=== PATIENT | female | born 1970 | race Caucasian/White ===

== ENCOUNTER 2019-09-22 06:00 | Outpatient (RCR) | payer MEDICARE, MEDICAID, SELFPAY | END 2019-10-22 23:59 | disposition home or self-care (01) | LOC: WPT 06:00 | PROVIDERS: Family Provider Nurse Practitioner Family; PCP Nurse Practitioner Family; Referring Provider Nurse Practitioner; Visit Provider Nurse Practitioner | DX: R42 Dizziness and giddiness (principal) | CPT/HCPCS: 97110; 97161; 97530 ==

== ENCOUNTER → 2019-10-01 16:08 | Outpatient (BNVA) | payer MEDICARE, MEDICAID, SELFPAY | PROVIDERS: Family Provider Nurse Practitioner Family; PCP Nurse Practitioner Family; Visit Provider Nurse Practitioner Family | DX: M25.562 Pain in left knee (principal); G89.29 Other chronic pain; G47.30 Sleep apnea, unspecified; E78.5 Hyperlipidemia, unspecified | CPT/HCPCS: 73560 ==

== ENCOUNTER → 2019-10-08 08:54 | Outpatient (BNVA) | payer MEDICARE, MEDICAID, SELFPAY | PROVIDERS: Family Provider Nurse Practitioner Family; Visit Provider Nurse Practitioner Psychiatric/Mental Health | DX: F31.63 Bipolar disorder, current episode mixed, severe, without psychotic features (principal); F41.1 Generalized anxiety disorder; F17.210 Nicotine dependence, cigarettes, uncomplicated | CPT/HCPCS: 99214; 99215 ==

== ENCOUNTER 2019-10-27 06:50 | Day surgery (SDC) | payer MEDICARE, MEDICAID, SELFPAY ==
[2019-10-26 07:48] VITALS: BMI 26.3
[2019-10-27 07:17] VITALS: BP 104/73; PULSE 88; RESP 18; TEMP 37.4; O2SAT 97
[2019-10-27] MEDS: sodium chloride 0.9% 1,000 ML 30 ML (07:20)
--- NOTE | 2019-10-27 07:29 | ANES.PREANE2 ---
Pre-Anesthetic Assessment Pre-Anesthetic Assessment: Height/Weight: Height 1.57 m Weight 65.317 kg Temp Pulse Resp BP Pulse Ox 99.3 F 88 18 104/73 97 10/27/19 07:17 10/27/19 07:17 10/27/19 07:17 10/27/19 07:17 10/27/19 07:17 Preop Diagnosis: History of colon polyps Proposed Procedure: Operation Date: 10/27/19 07:45 Proposed Procedures p Colonoscopy 06984 Z12.11(Not Applicable) - Aung Alston MD Was Beta Gay taken within 24 hours: N/A Last intake: Intake Last Liquid Date 10/26/19 Last Liquid Time 23:00 Last Solid Date 10/25/19 Last Solid Time 12:00 Last Intake: 23:00 Social: Social History: Tobacco Packs per day: 1 Pack years: 40+ Exam: Pre-Anes Outpt Exam: alert, oriented x 3, clear to auscultation bilaterally and regular rate & rhythm Airway: Submandibular: WNL Cervical ROM: WNL MP: 1 Dentition: False Pulmonary: Pulmonary: Asthma Comments: UD is PRN, breathing ok this am CV/HEM: CV/HEM: None reported : : None reported Hepatic: Hepatic: None reported GI: GI: GERD Metabolic: Metabolic: None reported Musc/skel: Musc/skel: Lower Back Pain and OA/DJD Neuropsych: Neuropsych: Anxiety, Bipolar, Depression and COSME Anesthetic Plan: ASA status: II Anesthesia: Anesthesia Evaluation and MAC Risk of > 500 ml blood loss (7ml/kg in children): No PFSH Anesthesia PFSH: Social History Smoking and tobacco status: current every day smoker cigarettes Packs smoked per day: 1 Years cigarettes smoked: 40 Quit status (tobacco): considering quitting Second hand smoke exposure: Yes Alcohol intake: never Lives independently: Yes Household members: significant other Marital status: Single Current occupational status: disabled History of recent travel: No Data Anesthesia Cardiac Studies: No Data to Display
--- NOTE | 2019-10-27 07:33 | P.HPUD_ITS ---
H&P update H&P Update: DATE OF SURGERY/PROCEDURE: 10/27/19 DATE H&P PERFORMED: H&P UPDATE INFORMATION: H&P completed within last 30 days and No changes to prior documentation PREOP DIAGNOSIS: History of colon polyps PLANNED PROCEDURE: Operation Date: 10/27/19 07:45 Proposed Procedures p Colonoscopy 84026 Z12.11(Not Applicable) - Aung Alston MD Full H&P Perinent History: Medical/Surgical History: Medical History (Updated 10/08/19 @ 11:21 by Minnie Quevedo, [facility]) Anemia (Acute) Bilateral hearing loss (Acute) Bipolar I disorder, most recent episode mixed, severe without psychotic features (Acute) Cigarette nicotine dependence (Acute) Generalized anxiety disorder (Acute) GERD (gastroesophageal reflux disease) (Chronic) Hyperlipidemia, mixed (Acute) Hypertension, benign (Acute) Intervertebral disc degeneration (Acute) Memory change (Acute) Menopause (Acute) Moderate persistent asthma (Acute) Sleep apnea (Acute) Sleep apnea in adult (Chronic) Patient had initial sleep study done, but titration portion of test has not been done Vitamin D deficiency (Acute) Family History: Family History (Updated 08/27/19 @ 09:23 by DAISY Harper) Mother Hypercholesteremia Hypertension Diabetes Heart disease Stroke Denies family history of Anesthesia complication Bleeding disorder Social History: Social History Smoking and tobacco status: current every day smoker cigarettes Packs smoked per day: 1 Years cigarettes smoked: 40 Quit status (tobacco): considering quitting Second hand smoke exposure: Yes Alcohol intake: never Lives independently: Yes Household members: significant other Marital status: Single Current occupational status: disabled History of recent travel: No
[2019-10-27 08:26] VITALS: BP 109/67; PULSE 89; RESP 16; TEMP 36.3; O2SAT 100
--- NOTE | 2019-10-27 08:34 | ANE.PACU2 ---
 Inpatient post-anesthesia follow up: Airway intact: Yes Vital signs: Temperature 99.3 F Pulse Rate 88 Respiratory Rate 18 Blood Pressure 104/73 Pulse Oximetry 97 Oxygen Delivery Me thod Room Air Oxygen Flow Rate Fraction of Inspir ed Oxygen Hydration adequate: Yes Nausea and vomiting: No Pain level: 1 Mental status: Baseline
[2019-10-27 08:45] VITALS: BP 117/81; PULSE 76; RESP 18; O2SAT 99
== END 2019-10-27 08:55 | disposition home or self-care (01) ==
PROVIDERS: Family Provider Nurse Practitioner Family; PCP Nurse Practitioner Family; Visit Provider Surgery
PROC: 0DJD8ZZ Inspection of Lower Intestinal Tract, Via Natural or Artificial Opening Endoscopic (ICD-10-PCS; CPT 45378; principal; 2019-10-27 07:45)
DX: Z12.11 Encounter for screening for malignant neoplasm of colon (principal); Z86.010 Personal history of colon polyps; D12.4 Benign neoplasm of descending colon; F17.210 Nicotine dependence, cigarettes, uncomplicated; F41.1 Generalized anxiety disorder; K21.9 Gastro-esophageal reflux disease without esophagitis; E78.5 Hyperlipidemia, unspecified; I10 Essential (primary) hypertension; G47.30 Sleep apnea, unspecified; Z82.49 Family history of ischemic heart disease and other diseases of the circulatory system; Z83.3 Family history of diabetes mellitus; Z82.3 Family history of stroke; J45.909 Unspecified asthma, uncomplicated; M19.90 Unspecified osteoarthritis, unspecified site
CPT/HCPCS: 12345; 45385; 88305; J2704; J7030

== ENCOUNTER → 2019-11-03 10:03 | Outpatient (BNVA) | payer MEDICARE, MEDICAID, SELFPAY | PROVIDERS: Family Provider Nurse Practitioner Family; PCP Nurse Practitioner Family; Visit Provider Nurse Practitioner Psychiatric/Mental Health | DX: F31.63 Bipolar disorder, current episode mixed, severe, without psychotic features (principal); F41.1 Generalized anxiety disorder; F17.210 Nicotine dependence, cigarettes, uncomplicated | CPT/HCPCS: 99214 ==

== ENCOUNTER 2019-11-08 15:18 | Outpatient (CLI) | payer MEDICARE, MEDICAID, SELFPAY ==
--- NOTE | 2019-11-08 15:35 | CT_ITS ---
WS: [id number] CT CERVICAL SPINE TECHNIQUE: Noncontrast CT of the cervical spine with coronal and sagittal reformatted images. CLINICAL INFORMATION: HISTORY OF FUSION OF CERVICAL SPINE COMPARISON: CT May 18, 2019 DLP: 1461.[address] scans at [facility] use at least one of these dose optimization techniques: automat ed exposure control; mA and/or kV adjustment per patient size (includes targeted exams where dose is matched to clinical indication); or iterative reconstruction. FINDINGS: Mild cervical curve convex left. Anterior cervical fusion C4-C6 with anterior fusion hardware and par tial corpectomy at C5-6. Fusion grafts appear unchanged from previous. Hardware appears unchanged. Ev idence of prior hardware revision. Slight anterolisthesis C6 on C7 and C7 on T1 measuring 1 to 2 mm u nchanged. C2-C3: Normal. C3-C4: Disc osteophyte complex with endplate ridging. Moderate bilateral bony foraminal narrowing. Mo derate facet arthropathy. Mild central canal stenosis. C4-C5: Solid-appearing interbody cervical fusion. Moderate right and mild left bony foraminal narrowi ng. Moderate facet arthropathy asymmetric to the right. Mild central canal stenosis. C5-C6: Left pericentral protruding osteophyte with indentation left ventral cervical cord. This is u nchanged with moderate central canal stenosis. Moderate bilateral bony foraminal narrowing. Asymmetri c moderate right facet arthropathy. Mild central canal stenosis. C6-C7: Anterior cervical fusion with partial corpectomy at C6. Moderate to severe right and moderate left bony foraminal narrowing. Spinal canal is patent. Asymmetric moderate facet arthropathy. C7-T1: Mild bilateral bony foraminal narrowing. Moderate facet arthropathy. T1-2: Slight anterolisthesis T1 on T2. Moderate bilateral bony foraminal narrowing with moderate face t arthropathy. Visualized posterior nasopharynx: Normal. Prevertebral soft tissues: Normal. CT/CT cervical spin wo con* [id number] IMPRESSION: 1. Straightening of the normal cervical lordosis with stable postoperative fus ion C4-C6. Hardware appears unchanged. 2. Solid-appearing interbody bony fusion C4-C5. Partial corpectomy at C6. Hard galindo appears stable. 3. Left pericentral protruding osteophyte C5-6 with indentation left ventral c ervical cord and moderate central canal stenosis. 4. Multilevel bony foraminal narrowing worse at bilateral C5-C6 and right C6-C 7 is unchanged. 5. Stable slight anterolisthesis C7 on T1 and T1 on T2.
== END 2019-11-08 15:19 | disposition home or self-care (01) ==
LOC: RADWPI 15:20
PROVIDERS: Family Provider Nurse Practitioner Family; PCP Nurse Practitioner Family; Visit Provider Licensed Practical Nurse
DX: Z98.1 Arthrodesis status (principal); M48.02 Spinal stenosis, cervical region
CPT/HCPCS: 72125

== ENCOUNTER → 2019-11-24 07:59 | Outpatient (BNVA) | payer MEDICARE, MEDICAID, SELFPAY | PROVIDERS: Family Provider Nurse Practitioner Family; PCP Nurse Practitioner Family; Visit Provider Anesthesiology | DX: G89.28 Other chronic postprocedural pain (principal); M54.2 Cervicalgia; F17.210 Nicotine dependence, cigarettes, uncomplicated; Z79.891 Long term (current) use of opiate analgesic; Z98.890 Other specified postprocedural states; Z98.1 Arthrodesis status; Z71.6 Tobacco abuse counseling | CPT/HCPCS: 99214 ==

== ENCOUNTER → 2019-11-29 10:07 | Outpatient (BNVA) | payer MEDICARE, MEDICAID, SELFPAY | PROVIDERS: Family Provider Nurse Practitioner Family; PCP Nurse Practitioner Family; Visit Provider Nurse Practitioner Psychiatric/Mental Health | DX: Z79.899 Other long term (current) drug therapy (principal); F31.63 Bipolar disorder, current episode mixed, severe, without psychotic features; F41.1 Generalized anxiety disorder; F17.210 Nicotine dependence, cigarettes, uncomplicated | CPT/HCPCS: 80053; 80164; 85025; 99214 ==

== ENCOUNTER → 2020-01-10 07:23 | Outpatient (BNVA) | payer MEDICARE, MEDICAID, SELFPAY | PROVIDERS: Family Provider Nurse Practitioner Family; PCP Nurse Practitioner Family; Visit Provider Nurse Practitioner Psychiatric/Mental Health | DX: F31.63 Bipolar disorder, current episode mixed, severe, without psychotic features (principal); F41.1 Generalized anxiety disorder; F17.210 Nicotine dependence, cigarettes, uncomplicated; Z79.899 Other long term (current) drug therapy; F43.12 Post-traumatic stress disorder, chronic | CPT/HCPCS: 99214 ==

== ENCOUNTER → 2020-01-13 12:00 | Outpatient (BNVA) | payer MEDICARE, MEDICAID, SELFPAY | PROVIDERS: Family Provider Nurse Practitioner Family; PCP Nurse Practitioner Family; Visit Provider Nurse Practitioner Family | DX: N39.0 Urinary tract infection, site not specified (principal); E55.9 Vitamin D deficiency, unspecified; E53.8 Deficiency of other specified B group vitamins; I10 Essential (primary) hypertension; K21.9 Gastro-esophageal reflux disease without esophagitis; R74.8 Abnormal levels of other serum enzymes; E78.2 Mixed hyperlipidemia; Z79.899 Other long term (current) drug therapy; D64.9 Anemia, unspecified; M51.36 Other intervertebral disc degeneration, lumbar region; Z12.31 Encounter for screening mammogram for malignant neoplasm of breast; L21.9 Seborrheic dermatitis, unspecified | CPT/HCPCS: 80053; 80061; 81001; 82306; 82607; 83036; 83921; 84443; 85025 ==

== ENCOUNTER → 2020-02-09 07:37 | Outpatient (BNVA) | payer MEDICARE, MEDICAID, SELFPAY | PROVIDERS: Family Provider Nurse Practitioner Family; PCP Nurse Practitioner Family; Visit Provider Nurse Practitioner Psychiatric/Mental Health | DX: F31.63 Bipolar disorder, current episode mixed, severe, without psychotic features (principal); F41.1 Generalized anxiety disorder; F17.210 Nicotine dependence, cigarettes, uncomplicated | CPT/HCPCS: 99214 ==

== ENCOUNTER → 2020-02-28 10:00 | Outpatient (BNVA) | payer MEDICARE, MEDICAID, SELFPAY | PROVIDERS: Family Provider Nurse Practitioner Family; PCP Nurse Practitioner Family; Visit Provider Nurse Practitioner Family | DX: G89.29 Other chronic pain (principal); M25.562 Pain in left knee; M79.642 Pain in left hand; M25.532 Pain in left wrist | CPT/HCPCS: 73110; 73130; 80053; 82607; 83735; 85651; 86038; 86140 ==

== ENCOUNTER → 2020-03-08 10:40 | Outpatient (BNVA) | payer MEDICARE, MEDICAID, SELFPAY | PROVIDERS: Family Provider Nurse Practitioner Family; PCP Nurse Practitioner Family; Visit Provider Nurse Practitioner | DX: G89.28 Other chronic postprocedural pain (principal); M54.2 Cervicalgia; M54.9 Dorsalgia, unspecified; F17.210 Nicotine dependence, cigarettes, uncomplicated; Z79.891 Long term (current) use of opiate analgesic; Z98.890 Other specified postprocedural states | CPT/HCPCS: 99215 ==

== ENCOUNTER → 2020-03-17 07:47 | Outpatient (BNVA) | payer MEDICARE, MEDICAID, SELFPAY | PROVIDERS: Family Provider Nurse Practitioner Family; PCP Nurse Practitioner Family; Visit Provider Nurse Practitioner Psychiatric/Mental Health | DX: F31.63 Bipolar disorder, current episode mixed, severe, without psychotic features (principal); F41.1 Generalized anxiety disorder; F17.210 Nicotine dependence, cigarettes, uncomplicated | CPT/HCPCS: 99214 ==

== ENCOUNTER 2020-04-07 10:06 | Outpatient (CLI) | payer MEDICARE, MEDICAID, SELFPAY ==
--- NOTE | 2020-04-07 10:18 | XR_ITS ---
WS: [id number] Left knee, AP and lateral, 04/07/2020 Clinical Data: chronic left knee pain Comparison: Left knee, 10/01/2019. Findings: No fractures or dislocations are seen. The joint spaces are normal. The patella is intact. The soft t issues are unremarkable. XR/XR knee LT 1-2V [id number] Impression: Negative left knee.
--- NOTE | 2020-04-07 10:18 | XR_ITS ---
WS: [id number] Thoracic spine, 3 views, 04/07/2020 Clinical Data: back pain right Comparison: None. Findings: No compression fractures are seen. The disc heights are normal. The patient has had an anterior cervical disc fusion. There are clips in the right upper quadrant fro m a cholecystectomy. Minimal anterior osteoarthritic spurring of all the thoracic vertebral bodies is seen. XR/XR thoracic spine 3V* [id number] Impression: Mild osteoarthritis of the thoracic vertebral bodies.
--- NOTE | 2020-04-07 10:18 | XR_ITS ---
WS: [id number] Lumbar spine, 3 views, 04/07/2020 Clinical Data: back pain Comparison: None. Findings: No compression fractures or subluxation is seen. Disc space narrowing is present at L5-S1. Minimal an terior osteoarthritic spurring is seen at L1, L2, L3 and L5. The transverse processes and SI joints a re normal. There are clips in the right upper quadrant from a cholecystectomy. There is a stimulator wire overlying the left sacrum. XR/XR lumbar spine 2-3V* [id number] Impression: 1. Minimal osteoarthritis. 2. Degenerative disc disease at L5-S1.
== END 2020-04-07 10:07 | disposition home or self-care (01) ==
LOC: RADWPI 10:09
PROVIDERS: Family Provider Nurse Practitioner Family; PCP Nurse Practitioner Family; Visit Provider Nurse Practitioner Family
DX: M25.562 Pain in left knee (principal); G89.29 Other chronic pain; M54.9 Dorsalgia, unspecified; M47.816 Spondylosis without myelopathy or radiculopathy, lumbar region; M51.37 Other intervertebral disc degeneration, lumbosacral region
CPT/HCPCS: 72072; 72100; 73560

== ENCOUNTER → 2020-04-18 07:32 | Outpatient (BNVA) | payer MEDICARE, MEDICAID, SELFPAY | PROVIDERS: Family Provider Nurse Practitioner Family; PCP Nurse Practitioner Family; Visit Provider Nurse Practitioner Psychiatric/Mental Health | DX: F31.63 Bipolar disorder, current episode mixed, severe, without psychotic features (principal); F41.1 Generalized anxiety disorder; F17.210 Nicotine dependence, cigarettes, uncomplicated | CPT/HCPCS: 99214 ==

== ENCOUNTER 2020-04-19 08:53 | Outpatient (CLI) | payer MEDICARE, MEDICAID, SELFPAY ==
--- NOTE | 2020-04-19 09:15 | CT_ITS ---
WS: [id number] CT LUMBAR SPINE, noncontrast. HISTORY: ddd lumbar and thoracic spine TECHNIQUE: Contiguous 2.5 mm axial imaging are performed. Sagittal and coronal reformats are submitte d and reviewed. All CT scans at [facility] use at least one of these dose optimization te chniques: automated exposure control; mA and/or kV adjustment per patient size (includes targeted exa ms where dose is matched to clinical indication); or iterative reconstruction. IV contrast: None DLP: 1838.22 mGycm COMPARISON: Lumbar spine radiographs 04/07/2020 Normal lumbar alignment with no loss of disc space height or vertebral body height. T12-L1: 4 mm osteophyte projects posteriorly from the LEFT posterior T12 vertebral body with mild enc roachment upon the ventral thecal sac. No significant stenosis. L1-2: Mild osteophytic protrusion posteriorly. No stenosis. L2-3: Mild annular disc bulging. No stenosis. L3-4: Very slight annular disc bulging. No significant stenosis. L4-5: Mild annular disc bulging, slightly asymmetric into the LEFT foramen. Mild ligamentum flavum an d facet arthropathy. There is mild central and RIGHT subarticular recess encroachment. L5-S1: Mild annular disc bulging. A larger osteophytes extend into the foramen bilaterally. There is a central disc protrusion which is small. Mild bilateral foraminal stenosis due to disc osteophyte di sease. Greatest on the RIGHT. Disc osteophyte encroaches and does abut the RIGHT L5 and S1 nerve root s. Prior cholecystectomy. Mild atherosclerosis aorta. CT/CT lumbar spine wo con* [id number] IMPRESSION: 1. Mild bilateral foraminal stenosis at L5-S1, most significant on the RIGHT. Disc osteophyte encroachment upon the RIGHT L5 and S1 nerve roots. 2. Otherwise mild spondylitic changes. 3. Mild central and RIGHT subarticular recess encroachment at L4-5.
--- NOTE | 2020-04-19 09:30 | CT_ITS ---
WS: [id number] CT THORACIC SPINE HISTORY: DDD lumbar and thoracic TECHNIQUE: Contiguous 2.5 mm axial images are reviewed to thoracic spine. Images are reformatted in s agittal and coronal planes. All CT scans at [facility] use at least one of these dose opt imization techniques: automated exposure control; mA and/or kV adjustment per patient size (includes targeted exams where dose is matched to clinical indication); or iterative reconstruction. DLP: 835.33 mGycm COMPARISON: 04/07/2020 thoracic spine radiographs. Moderate increase in the thoracic kyphosis. There is mild disc space narrowing and endplate osteophyt es at all levels. No fractures. Anterior cervical fusion hardware in the lower cervical spine. Forami nal stenosis on the RIGHT at C6-7. T1-2: Foraminal osteophytes resulting in moderate to severe RIGHT stenosis and moderate on the LEFT. T2-3: Normal. T3-4: Normal. T4-5: Normal. T5-6: Normal. T6-7: Normal. T7-8: Normal. T8-9: Normal. T9-10: Normal. T10-11: Mild osteophytic ridging and facet arthritis. Mild bilateral foraminal stenosis. T11-12: Asymmetric disc bulging to the RIGHT. No stenosis. Paravertebral soft tissues are normal. CT/CT thoracic spin wo con* [id number] IMPRESSION: 1. Severe RIGHT and moderate LEFT foraminal stenosis at T1-2 due to osteophyte disease. 2. Mild bilateral foraminal stenosis at T10-11 due to osteophyte disease. 3. Mild increase in thoracic kyphosis with multilevel spondylosis.
== END 2020-04-19 08:54 | disposition home or self-care (01) ==
LOC: RADWPI 08:57
PROVIDERS: Family Provider Nurse Practitioner Family; PCP Nurse Practitioner Family; Visit Provider Nurse Practitioner Family
DX: M51.36 Other intervertebral disc degeneration, lumbar region (principal); M51.34 Other intervertebral disc degeneration, thoracic region; M48.04 Spinal stenosis, thoracic region; M25.78 Osteophyte, vertebrae; M47.814 Spondylosis without myelopathy or radiculopathy, thoracic region; M40.294 Other kyphosis, thoracic region; M48.07 Spinal stenosis, lumbosacral region
CPT/HCPCS: 72128; 72131

== ENCOUNTER 2020-04-20 20:00 | Outpatient (CLI) | payer MEDICARE, MEDICAID, SELFPAY | END 2020-04-20 20:01 | disposition home or self-care (01) | LOC: SLEEP 04-21 10:01 | PROVIDERS: Family Provider Nurse Practitioner Family; PCP Nurse Practitioner Family; Visit Provider Nurse Practitioner Family | DX: G47.30 Sleep apnea, unspecified (principal) | CPT/HCPCS: 95811 ==

== ENCOUNTER → 2020-04-26 11:14 | Outpatient (BNVA) | payer MEDICARE, MEDICAID, SELFPAY | PROVIDERS: Family Provider Nurse Practitioner Family; PCP Nurse Practitioner Family; Visit Provider Nurse Practitioner Family | DX: I10 Essential (primary) hypertension (principal); E55.9 Vitamin D deficiency, unspecified; R74.8 Abnormal levels of other serum enzymes; Z79.899 Other long term (current) drug therapy; E83.42 Hypomagnesemia; E78.2 Mixed hyperlipidemia; R53.83 Other fatigue; R11.0 Nausea | CPT/HCPCS: 80053; 80061; 81001; 82306; 82607; 83036; 83735; 84443; 85025 ==

== ENCOUNTER 2020-05-03 06:00 | Outpatient (RCR) | payer MEDICARE, MEDICAID, SELFPAY | END 2020-05-22 23:59 | disposition home or self-care (01) | LOC: WPT 06:00 | PROVIDERS: PCP Nurse Practitioner Family; Referring Provider Licensed Practical Nurse; Visit Provider Licensed Practical Nurse | DX: M51.34 Other intervertebral disc degeneration, thoracic region (principal); M51.16 Intervertebral disc disorders with radiculopathy, lumbar region | CPT/HCPCS: 97110; 97112; 97163 ==

== ENCOUNTER → 2020-05-22 07:43 | Outpatient (BNVA) | payer MEDICARE, MEDICAID, SELFPAY | PROVIDERS: PCP Nurse Practitioner Family; Visit Provider Nurse Practitioner Psychiatric/Mental Health | DX: F31.63 Bipolar disorder, current episode mixed, severe, without psychotic features (principal); F41.1 Generalized anxiety disorder; F17.210 Nicotine dependence, cigarettes, uncomplicated | CPT/HCPCS: 99214 ==

== ENCOUNTER 2020-05-23 06:00 | Outpatient (RCR) | payer MEDICARE, MEDICAID, SELFPAY | END 2020-06-21 23:59 | disposition home or self-care (01) | LOC: WPT 06:00 | PROVIDERS: PCP Nurse Practitioner Family; Referring Provider Licensed Practical Nurse; Visit Provider Licensed Practical Nurse | DX: M51.34 Other intervertebral disc degeneration, thoracic region (principal); M51.16 Intervertebral disc disorders with radiculopathy, lumbar region | CPT/HCPCS: 97110; 97112 ==

== ENCOUNTER → 2020-05-24 09:30 | Outpatient (BNVA) | payer MEDICARE, MEDICAID, SELFPAY | PROVIDERS: PCP Nurse Practitioner Family; Visit Provider Nurse Practitioner Family | DX: E53.8 Deficiency of other specified B group vitamins (principal) | CPT/HCPCS: 80053; 82607 ==

== ENCOUNTER → 2020-06-23 08:18 | Outpatient (BNVA) | payer MEDICARE, MEDICAID, SELFPAY | PROVIDERS: PCP Nurse Practitioner Family; Visit Provider Nurse Practitioner Psychiatric/Mental Health | DX: F31.63 Bipolar disorder, current episode mixed, severe, without psychotic features (principal); F41.1 Generalized anxiety disorder; F17.210 Nicotine dependence, cigarettes, uncomplicated; F43.12 Post-traumatic stress disorder, chronic | CPT/HCPCS: 99214 ==

== ENCOUNTER → 2020-06-26 10:24 | Outpatient (BNVA) | payer MEDICARE, MEDICAID, SELFPAY | PROVIDERS: PCP Nurse Practitioner Family; Visit Provider Nurse Practitioner Family | DX: Z20.828 Contact with and (suspected) exposure to other viral communicable diseases (principal) | CPT/HCPCS: 87635 ==

== ENCOUNTER → 2020-07-25 11:09 | Outpatient (BNVA) | payer MEDICARE, MEDICAID, SELFPAY | PROVIDERS: PCP Nurse Practitioner Family; Visit Provider Internal Medicine Rheumatology | DX: M25.541 Pain in joints of right hand (principal); M25.542 Pain in joints of left hand; G47.33 Obstructive sleep apnea (adult) (pediatric); Z79.899 Other long term (current) drug therapy; F17.210 Nicotine dependence, cigarettes, uncomplicated; M79.10 Myalgia, unspecified site | CPT/HCPCS: 99203 ==

== ENCOUNTER → 2020-08-01 11:12 | Outpatient (BNVA) | payer MEDICARE, MEDICAID, SELFPAY | PROVIDERS: PCP Nurse Practitioner Family; Visit Provider Nurse Practitioner Family | DX: Z20.828 Contact with and (suspected) exposure to other viral communicable diseases (principal); R11.2 Nausea with vomiting, unspecified | CPT/HCPCS: 87400; 87635 ==

== ENCOUNTER → 2020-08-14 08:08 | Outpatient (BNVA) | payer MEDICARE, MEDICAID, SELFPAY | PROVIDERS: PCP Nurse Practitioner Family; Visit Provider Nurse Practitioner Psychiatric/Mental Health | DX: F31.63 Bipolar disorder, current episode mixed, severe, without psychotic features (principal); F41.1 Generalized anxiety disorder; F17.210 Nicotine dependence, cigarettes, uncomplicated; F43.12 Post-traumatic stress disorder, chronic | CPT/HCPCS: 99214 ==

== ENCOUNTER → 2020-09-26 14:54 | Outpatient (BNVA) | payer MEDICARE, MEDICAID, SELFPAY | PROVIDERS: PCP Nurse Practitioner Family; Visit Provider Internal Medicine Rheumatology | DX: M79.10 Myalgia, unspecified site (principal); M25.541 Pain in joints of right hand; M25.542 Pain in joints of left hand; F17.210 Nicotine dependence, cigarettes, uncomplicated | CPT/HCPCS: 99213 ==

== ENCOUNTER → 2020-10-11 07:32 | Outpatient (BNVA) | payer MEDICARE, MEDICAID, SELFPAY | PROVIDERS: PCP Nurse Practitioner Family; Visit Provider Nurse Practitioner Psychiatric/Mental Health | DX: F31.63 Bipolar disorder, current episode mixed, severe, without psychotic features (principal); F41.1 Generalized anxiety disorder; F17.210 Nicotine dependence, cigarettes, uncomplicated | CPT/HCPCS: 99214 ==

== ENCOUNTER → 2020-11-15 07:30 | Outpatient (BNVA) | payer MEDICARE, MEDICAID, SELFPAY | PROVIDERS: PCP Nurse Practitioner Family; Visit Provider Nurse Practitioner Psychiatric/Mental Health | DX: F31.63 Bipolar disorder, current episode mixed, severe, without psychotic features (principal); F41.1 Generalized anxiety disorder; F17.210 Nicotine dependence, cigarettes, uncomplicated | CPT/HCPCS: 99214 ==

== ENCOUNTER → 2020-12-27 07:35 | Outpatient (BNVA) | payer MEDICARE, MEDICAID, SELFPAY | PROVIDERS: PCP Nurse Practitioner Family; Visit Provider Nurse Practitioner Psychiatric/Mental Health | DX: F31.63 Bipolar disorder, current episode mixed, severe, without psychotic features (principal); F41.1 Generalized anxiety disorder; F17.210 Nicotine dependence, cigarettes, uncomplicated; Z79.899 Other long term (current) drug therapy | CPT/HCPCS: 99214 ==

== ENCOUNTER → 2021-01-01 12:33 | Outpatient (BNVA) | payer MEDICARE, MEDICAID, SELFPAY | PROVIDERS: PCP Nurse Practitioner Family; Visit Provider Psychiatry & Neurology Neurology | DX: M54.12 Radiculopathy, cervical region (principal); M62.838 Other muscle spasm; M79.643 Pain in unspecified hand; F17.210 Nicotine dependence, cigarettes, uncomplicated | CPT/HCPCS: 95886; 95910 ==

== ENCOUNTER → 2021-01-24 07:40 | Outpatient (BNVA) | payer MEDICARE, MEDICAID, SELFPAY | PROVIDERS: PCP Nurse Practitioner Family; Visit Provider Nurse Practitioner Psychiatric/Mental Health | DX: F31.63 Bipolar disorder, current episode mixed, severe, without psychotic features (principal); F41.1 Generalized anxiety disorder; F17.210 Nicotine dependence, cigarettes, uncomplicated; Z79.899 Other long term (current) drug therapy | CPT/HCPCS: 80061; 80164; 83036; 99214 ==

== ENCOUNTER → 2021-02-08 08:02 | Outpatient (BNVA) | payer MEDICARE, MEDICAID, SELFPAY | PROVIDERS: PCP Nurse Practitioner Family; Visit Provider Nurse Practitioner Psychiatric/Mental Health | DX: F31.63 Bipolar disorder, current episode mixed, severe, without psychotic features (principal); F41.1 Generalized anxiety disorder; F17.210 Nicotine dependence, cigarettes, uncomplicated; Z59.6 Low income; Z79.899 Other long term (current) drug therapy; F33.1 Major depressive disorder, recurrent, moderate | CPT/HCPCS: 99214 ==

== ENCOUNTER → 2021-02-12 09:21 | Outpatient (BNVA) | payer MEDICARE, MEDICAID, SELFPAY | PROVIDERS: PCP Nurse Practitioner Family; Referring Provider Nurse Practitioner Family; Visit Provider Specialist | DX: G56.00 Carpal tunnel syndrome, unspecified upper limb (principal) | CPT/HCPCS: 73110 ==

== ENCOUNTER → 2021-02-26 07:40 | Outpatient (BNVA) | payer MEDICARE, MEDICAID, SELFPAY | PROVIDERS: PCP Nurse Practitioner Family; Visit Provider Nurse Practitioner Psychiatric/Mental Health | DX: F31.63 Bipolar disorder, current episode mixed, severe, without psychotic features (principal); F41.1 Generalized anxiety disorder; F17.210 Nicotine dependence, cigarettes, uncomplicated; Z59.6 Low income | CPT/HCPCS: 99214 ==

== ENCOUNTER → 2021-03-05 13:11 | Outpatient (BNVA) | payer MEDICARE, MEDICAID, SELFPAY | PROVIDERS: PCP Nurse Practitioner Family; Visit Provider Nurse Practitioner Family | DX: M25.541 Pain in joints of right hand (principal); M25.542 Pain in joints of left hand; M79.10 Myalgia, unspecified site; Z79.899 Other long term (current) drug therapy | CPT/HCPCS: 80076; 82565; 85025; 86140 ==

== ENCOUNTER → 2021-03-06 14:26 | Outpatient (BNVA) | payer MEDICARE, MEDICAID, SELFPAY | PROVIDERS: PCP Nurse Practitioner Family; Visit Provider Internal Medicine Rheumatology | DX: M79.10 Myalgia, unspecified site (principal); T46.6X5A Adverse effect of antihyperlipidemic and antiarteriosclerotic drugs, initial encounter; M25.541 Pain in joints of right hand; M25.542 Pain in joints of left hand; F17.210 Nicotine dependence, cigarettes, uncomplicated | CPT/HCPCS: 99213 ==

== ENCOUNTER 2021-03-20 20:00 | Outpatient (CLI) | payer MEDICARE, MEDICAID, SELFPAY | END 2021-03-20 20:01 | disposition home or self-care (01) | LOC: SLEEP 03-21 08:22 | PROVIDERS: PCP Nurse Practitioner Family; Visit Provider Nurse Practitioner Family | DX: G47.30 Sleep apnea, unspecified (principal) | CPT/HCPCS: 95810 ==

== ENCOUNTER → 2021-04-02 07:16 | Outpatient (BNVA) | payer MEDICARE, MEDICAID, SELFPAY | PROVIDERS: PCP Nurse Practitioner Family; Visit Provider Nurse Practitioner Psychiatric/Mental Health | DX: F43.12 Post-traumatic stress disorder, chronic (principal); F31.63 Bipolar disorder, current episode mixed, severe, without psychotic features; F41.1 Generalized anxiety disorder; F17.210 Nicotine dependence, cigarettes, uncomplicated; Z59.6 Low income | CPT/HCPCS: 99214 ==

== ENCOUNTER → 2021-05-09 08:09 | Outpatient (BNVA) | payer MEDICARE, MEDICAID, SELFPAY | PROVIDERS: PCP Nurse Practitioner Family; Visit Provider Nurse Practitioner Psychiatric/Mental Health | DX: F43.12 Post-traumatic stress disorder, chronic (principal); F31.63 Bipolar disorder, current episode mixed, severe, without psychotic features; F41.1 Generalized anxiety disorder; F17.210 Nicotine dependence, cigarettes, uncomplicated; Z59.6 Low income | CPT/HCPCS: 99214 ==

== ENCOUNTER → 2021-05-14 10:52 | Outpatient (BNVA) | payer MEDICARE, MEDICAID, SELFPAY | PROVIDERS: PCP Nurse Practitioner Family; Visit Provider Nurse Practitioner Family | DX: Z01.89 Encounter for other specified special examinations (principal) | CPT/HCPCS: 83630; 87506 ==

== ENCOUNTER → 2021-05-14 15:29 | Outpatient (BNVA) | payer MEDICARE, MEDICAID, SELFPAY | PROVIDERS: PCP Nurse Practitioner Family; Visit Provider Nurse Practitioner Family | DX: I10 Essential (primary) hypertension (principal); E53.8 Deficiency of other specified B group vitamins; E78.2 Mixed hyperlipidemia; E55.9 Vitamin D deficiency, unspecified; K52.9 Noninfective gastroenteritis and colitis, unspecified; Z79.899 Other long term (current) drug therapy; G47.30 Sleep apnea, unspecified; G56.03 Carpal tunnel syndrome, bilateral upper limbs | CPT/HCPCS: 80053; 80061; 81003; 82306; 82607; 83036; 83630; 83735; 84443; 85025; 87506 ==

== ENCOUNTER → 2021-05-31 10:00 | Outpatient (BNVA) | payer MEDICARE, MEDICAID, SELFPAY | PROVIDERS: PCP Nurse Practitioner Family; Visit Provider Nurse Practitioner Family | DX: M25.551 Pain in right hip (principal); M25.552 Pain in left hip; R06.02 Shortness of breath; R06.2 Wheezing; J22 Unspecified acute lower respiratory infection; R05 Cough | CPT/HCPCS: 71046; 73502 ==

== ENCOUNTER → 2021-06-20 07:35 | Outpatient (BNVA) | payer MEDICARE, MEDICAID, SELFPAY | PROVIDERS: PCP Nurse Practitioner Family; Visit Provider Nurse Practitioner Psychiatric/Mental Health | DX: F43.12 Post-traumatic stress disorder, chronic (principal); F31.63 Bipolar disorder, current episode mixed, severe, without psychotic features; F41.1 Generalized anxiety disorder; F17.210 Nicotine dependence, cigarettes, uncomplicated; Z59.6 Low income | CPT/HCPCS: 99214 ==

== ENCOUNTER → 2021-07-04 10:19 | Outpatient (BNVA) | payer MEDICARE, MEDICAID, SELFPAY | PROVIDERS: PCP Nurse Practitioner Family; Referring Provider Nurse Practitioner Family; Visit Provider Specialist | DX: M16.0 Bilateral primary osteoarthritis of hip (principal) | CPT/HCPCS: 73523 ==

== ENCOUNTER → 2021-07-31 08:23 | Outpatient (BNVA) | payer MEDICARE, MEDICAID, SELFPAY | PROVIDERS: PCP Nurse Practitioner Family; Visit Provider Nurse Practitioner Psychiatric/Mental Health | DX: F43.12 Post-traumatic stress disorder, chronic (principal); F31.63 Bipolar disorder, current episode mixed, severe, without psychotic features; F41.1 Generalized anxiety disorder; F17.210 Nicotine dependence, cigarettes, uncomplicated; Z59.6 Low income | CPT/HCPCS: 99214 ==

== ENCOUNTER 2021-08-27 07:59 | Outpatient (CLI) | payer MEDICARE, MEDICAID, SELFPAY ==
--- NOTE | 2021-08-27 08:15 | CT_ITS ---
WS: [id number] CT CERVICAL SPINE TECHNIQUE: Noncontrast CT of the cervical spine with coronal and sagittal reformatted images. CLINICAL INFORMATION: R51.9 - Headache, unspecified COMPARISON: None. DLP: 1726.[address] scans at [facility] use at least one of these dose optimization techniques: automated e xposure control; mA and/or kV adjustment per patient size (includes targeted exams where dose is matc hed to clinical indication); or iterative reconstruction. FINDINGS: Moderate spondylitic changes cervical spine. Prior postoperative changes cervical fusion C4-C6. Inter body fusion C4-C5 and C5-C6. Anterior cervical fusion hardware C5-C6. C2-C3: Mild facet arthropathy. Spinal canal and foramen are patent. C3-C4: Slight anterolisthesis C3 on C4. Disc osteophyte complex with endplate ridging. Moderate facet arthropathy. Moderate left greater than right bony foraminal narrowing. Mild central canal stenosis. C4-C5: Interbody bony fusion. Spinal canal and foramen are patent. Moderate facet arthropathy. C5-C6: Disc osteophyte complex with endplate ridging. Slight indentation left ventral cervical cord u nchanged from previous with mild to moderate central canal stenosis. Moderate bilateral bony foramina l narrowing with moderate facet arthropathy. C6-C7: Disc osteophytic ridging. Moderate right and no significant left foraminal narrowing. Spinal c anal is patent. C7-T1: No significant disc bulging. Spinal canal and foramen are patent. Overall no significant changes compared to previous. CT/CT cervical spin wo con* [id number] IMPRESSION: 1. Straightening of the normal cervical lordosis. Moderate spondylitic changes . Slight anterolisthesis C3 on C4. 2. Stable postoperative changes C4-C6 with solid appearing interbody fusion gr afts. 3. Mild central canal stenosis C3-C4 is unchanged. Mild to moderate central ca nal stenosis C5-6 with a left pericentral osteophyte unchanged. 4. Multilevel moderate bony foraminal narrowing worse at C3-C4 worse in the le ft, bilateral C5-C6 and right C6-C7.
== END 2021-08-27 08:00 | disposition home or self-care (01) ==
PROVIDERS: PCP Nurse Practitioner Family; Visit Provider Nurse Practitioner Family
DX: R51.9 Headache, unspecified (principal); Z98.1 Arthrodesis status; M48.02 Spinal stenosis, cervical region
CPT/HCPCS: 72125

== ENCOUNTER → 2021-09-04 07:42 | Outpatient (BNVA) | payer MEDICARE, MEDICAID, SELFPAY | PROVIDERS: PCP Nurse Practitioner Family; Visit Provider Nurse Practitioner Psychiatric/Mental Health | DX: F43.12 Post-traumatic stress disorder, chronic (principal); F31.63 Bipolar disorder, current episode mixed, severe, without psychotic features; F41.1 Generalized anxiety disorder; F17.210 Nicotine dependence, cigarettes, uncomplicated; Z59.6 Low income | CPT/HCPCS: 99214 ==

== ENCOUNTER → 2021-09-18 12:53 | Outpatient (BNVA) | payer MEDICARE, MEDICAID, SELFPAY | PROVIDERS: PCP Nurse Practitioner Family; Referring Provider Nurse Practitioner Family; Visit Provider Orthopaedic Surgery | DX: M54.2 Cervicalgia (principal); Z98.1 Arthrodesis status | CPT/HCPCS: 72050 ==

== ENCOUNTER 2021-10-17 | Outpatient (CLI) | payer MEDICARE, MEDICAID, SELFPAY | END 2021-10-17 23:59 | disposition home or self-care (01) | LOC: SLEEP 04-22 10:55 | PROVIDERS: PCP Nurse Practitioner Family; Visit Provider Nurse Practitioner Family | DX: F43.12 Post-traumatic stress disorder, chronic (principal); F31.63 Bipolar disorder, current episode mixed, severe, without psychotic features; F41.1 Generalized anxiety disorder; Z59.6 Low income; F17.210 Nicotine dependence, cigarettes, uncomplicated | CPT/HCPCS: 99214 ==

== ENCOUNTER 2021-11-01 08:48 | Outpatient (CLI) | payer MEDICARE, MEDICAID, SELFPAY ==
--- NOTE | 2021-11-01 10:00 | IR_ITS ---
WS: [id number] MYELOGRAM CERVICAL SPINE Fluoroscopic guided cervical myelogram CLINICAL INFORMATION: R26.89 - Other abnormalities of gait and mobility TECHNIQUE: The procedure, including risks, benefits, and complications, were discussed with the patie nt who agreed to proceed. A timeout was performed to confirm correct patient, procedure, and site. Using sterile technique, the patient was prepped and draped in the usual sterile fashion. After admin istration of local anesthesia using 1% preservative-free lidocaine and using fluoroscopic guidance, a 22-gauge spinal needle was advanced into the subarachnoid space at the L4-L5 level. Subsequently 13 cc of Omnipaque 240 was administered into the thecal sac. The needle was removed and hemostasis was a chieved. Subsequently the table was tilted down and contrast flowed freely into the cervical spine. S pot fluoroscopic images were obtained. FLUOROSCOPIC TIME: 1.5 minutes. Spot fluoroscopic images demonstrate straightening of the normal cervical lordosis. Slight anterolist hesis C3 on C4 measuring 2 mm. No instability on flexion-extension. Postoperative changes ACDF with h ardware C5-C6. Prior interbody bony fusion C4-C5. Normal C1-C2 articulation. Normal prevertebral soft tissues. Partially visualized pain pump or spinal stimulator extending cephalad off the [id number] w. Please see CT myelogram report for additional detail. IR/IR myelogram sp cervical [id number] IMPRESSION: 1. Uncomplicated cervical myelogram. 2. Postoperative changes ACDF with hardware C5-C6. Prior interbody bony fusion C4-C5. 3. Slight anterolisthesis C3 on C4 measuring 2 mm. No instability on flexion e xtension.
--- NOTE | 2021-11-01 11:30 | CT_ITS ---
WS: [id number] CT CERVICAL MYELOGRAM TECHNIQUE: CT of the cervical spine coronal and sagittal reformatted images post intrathecal administ ration of contrast. CLINICAL INFORMATION: R26.89 - Other abnormalities of gait and mobility COMPARISON: CT August 27, 2021 DLP: 326.[address] scans at [facility] use at least one of these dose optimization techniques: automated e xposure control; mA and/or kV adjustment per patient size (includes targeted exams where dose is matc hed to clinical indication); or iterative reconstruction. FINDINGS: Straightening of the normal cervical lordosis. Moderate spondylitic changes. 2 mm anterolisthesis C3 on C4. Prior postoperative changes cervical fusion C4-C6. Interbody fusion C4-C5 and C5-C6. Anterior cervical fusion hardware C5-C6. C2-C3: No significant disc bulging. Spinal canal and foramen are patent. C3-C4: Disc osteophyte complex with endplate ridging. Moderate to advanced facet arthropathy. Moderat e to severe RIGHT and Moderate LEFT bony foraminal narrowing. Mild central canal stenosis. C4-C5: Disc osteophyte complex with endplate ridging. Mild LEFT and no significant RIGHT foraminal na rrowing. Moderate facet arthropathy. Spinal canal is patent. C5-C6: LEFT pericentral osteophyte with slight contact of the LEFT ventral cervical cord and mild gera tral canal stenosis posterior to the C5 vertebral body. Moderate to severe RIGHT and mild LEFT bony f oraminal narrowing. Moderate facet arthropathy. C6-C7: Slight anterolisthesis C6 on C7. Moderate RIGHT and mild LEFT bony foraminal narrowing. Tiny c entral protrusion. Spinal canal is patent. C7-T1: Slight anterolisthesis C7 on T1. Tiny central protrusion. Spinal canal is patent. Mild LEFT an d no significant RIGHT foraminal narrowing. Visualized posterior fossa structures: Normal. CT/CT cervical spine w con [id number] IMPRESSION: 1. Straightening of the normal cervical lordosis. Moderate spondylitic changes. Slight anterolisthesis C3 on C4. 2. Stable postoperative changes C4-C6 with solid appearing interbody fusion gra fts. Stable anterior fusion hardware C5-C6. 3. Mild central canal stenosis C3-C4 is unchanged. Mild to moderate central can al stenosis C5-6 with a left pericentral osteophyte posterior to the C5 vertebr al body unchanged. 4. Moderate to severe RIGHT greater than LEFT bilateral bony foraminal narrowin g C3-C4 and RIGHT C5-C6. 5. Moderate RIGHT C6-C7 bony foraminal narrowing. 6. Mild LEFT C7-T1 foraminal narrowing.
[2021-11-01] MEDS: iohexol 240 mg/mL 50 mL Btl INTRATHECA (11:53)
== END 2021-11-01 08:49 | disposition home or self-care (01) ==
PROVIDERS: PCP Nurse Practitioner Family; Visit Provider Orthopaedic Surgery
DX: R26.89 Other abnormalities of gait and mobility (principal); M48.02 Spinal stenosis, cervical region
CPT/HCPCS: 62302; 72040; 72126

== ENCOUNTER 2021-11-06 10:51 | Outpatient (CLI) | payer MEDICARE, MEDICAID, SELFPAY | END 2021-11-06 10:52 | disposition home or self-care (01) | LOC: SPT 10:52 | PROVIDERS: PCP Nurse Practitioner Family; Visit Provider Orthopaedic Surgery | DX: Z46.89 Encounter for fitting and adjustment of other specified devices (principal); M54.2 Cervicalgia | CPT/HCPCS: 97760; L0174 ==

== ENCOUNTER → 2021-11-14 07:13 | Outpatient (BNVA) | payer MEDICARE, MEDICAID, SELFPAY | PROVIDERS: PCP Nurse Practitioner Family; Visit Provider Nurse Practitioner Psychiatric/Mental Health | DX: F43.12 Post-traumatic stress disorder, chronic (principal); F31.63 Bipolar disorder, current episode mixed, severe, without psychotic features; F41.1 Generalized anxiety disorder; Z59.6 Low income; F17.210 Nicotine dependence, cigarettes, uncomplicated | CPT/HCPCS: 99214 ==

== ENCOUNTER → 2021-11-29 00:01 | Outpatient (BNVA) | payer MEDICARE, MEDICAID, SELFPAY | PROVIDERS: PCP Nurse Practitioner Family; Visit Provider Orthopaedic Surgery | DX: Z01.812 Encounter for preprocedural laboratory examination (principal); Z20.822 Contact with and (suspected) exposure to COVID-19 | CPT/HCPCS: 87635 ==

== ENCOUNTER → 2021-12-03 07:52 | Outpatient (BNVA) | payer MEDICARE, MEDICAID, SELFPAY | PROVIDERS: PCP Nurse Practitioner Family; Visit Provider Nurse Practitioner Psychiatric/Mental Health | DX: F43.12 Post-traumatic stress disorder, chronic (principal); F31.63 Bipolar disorder, current episode mixed, severe, without psychotic features; F41.1 Generalized anxiety disorder; Z59.6 Low income; F17.210 Nicotine dependence, cigarettes, uncomplicated; Z79.899 Other long term (current) drug therapy | CPT/HCPCS: 80061; 83036; 99214 ==

== ENCOUNTER 2021-12-05 11:31 | Inpatient (IN) | payer MEDICARE, MEDICAID, SELFPAY ==
[2021-11-28 10:04] VITALS: BMI 28.5
--- NOTE | 2021-11-28 10:38 | P.ANESASSM_ITS ---
Pre-Anesthetic Assessment Height/Weight: Height 1.57 m Weight 70.76 kg Preop Diagnosis: History of colon polyps Operation Date: 12/05/21 07:00 Proposed Procedures p Cervical Posterior Fusion C2-T2 00668/88529 X5/77543 X2/94431/M47.12/G89.28/Z98.890(Not Applicable) - DO jonathan Rolle Cervical Decompression(Not Applicable) - Estuardo López DO Familial anesthetic complications: None Was Beta Gay taken within 24 hours: N/A Was Clonidine taken within 24 hours: N/A Social Tobacco and No alcohol Exam alert, oriented x 3, clear to auscultation bilaterally and regular rate & rhythm Airway Submandibular: within normal limits Cervical ROM: Other (Limited ROM) Mallampati: Class I Comments: Comments: Missing teeth Pulmonary Asthma and Chronic Obstructive Pulmonary Disease CV/HEM Anemia and Hypertension None reported Hepatic None reported GI Gastroesophageal Reflux Disease Chronic diarrhea Metabolic DDD Musc/skel Fibromyalgia and Osteoarthritis/DJD Neuropsych Anxiety, Bipolar and Headache Post laminectomy syndrome Hx of memory loss Hx of spinal cord stimulator Anesthetic Plan Anesthesia: Anesthesia Evaluation and General Other: We discussed risk and benefits of general anesthesia including PONV, sore throat (sometimes severe), corneal abrasion, positioning and peripheral nerve injuries, life threatening allergic reaction, post operative ICU admission requiring prolonged intubation, stroke, heart attack, , and rare incidences of recall. Patient consents to proceed with general anesthesia. Risk of > 500 ml blood loss (7ml/kg in children): No Medications/Allergies Home Medications Medication Instructions Recorded Confirmed Last Taken Type albuterol sulfate 2.5 mg INHALATION Q6H PRN 09/20/19 11/28/21 11/27/21 History hydrocodone 7.5 mg-acetaminophen 1 tab PO Q6H PRN 07/18/20 11/28/21 11/27/21 History 325 mg tablet albuterol sulfate 90 mcg/actuation See Rx Instructions .ROUTE 11/15/20 11/28/21 11/27/21 Rx aerosol inhaler .COMPLEX #6.7 g hydroxyzine pamoate 50 mg capsule 50 mg PO BID PRN #60 cap 12/27/20 11/28/21 11/28/21 07:00 Rx (Vistaril) CPAP and attachmen ts #1 ea 01/24/21 11/13/21 Unknown Rx nebulizers #1 ea 01/24/21 11/13/21 Unknown Rx omeprazole 20 mg capsule,delayed See Rx Instructions .ROUTE 09/11/21 11/28/21 11/28/21 07:00 Rx release .COMPLEX #30 cap rosuvastatin 20 mg tablet 20 mg PO DAILY 90 Days #90 tab 09/11/21 11/28/21 11/28/21 07:00 Rx prazosin 2 mg capsule 4 mg PO .bedtime #60 cap 10/17/21 11/28/21 11/27/21 20:00 Rx montelukast 10 mg tablet See Rx Instructions .ROUTE 11/02/21 11/28/21 11/27/21 20:00 Rx .COMPLEX #30 tab [place] J collar #1 ea 11/06/21 11/13/21 Unknown Rx divalproex 250 mg tablet,delayed 250 mg PO .morning #30 tab 11/14/21 11/28/21 11/28/21 07:00 Rx release (Depakote) lurasidone 20 mg tablet (Latuda) 20 mg PO .5 pm #15 tab 11/14/21 11/28/21 11/27/21 Rx sertraline 100 mg tablet (Zoloft) 100 mg PO DIRECTED tab 11/14/21 11/28/21 11/28/21 07:00 History psyllium husk 3.4 gram/5.4 gram 2 tsp PO DAILY PRN 11/28/21 11/28/21 Unknown History oral powder (Metamucil) Allergies Allergy/AdvReac Type Severity Reaction Status Date / Time buprenorphine [From Butrans] Allergy Uncontrollable Verified 11/08/21 08:02 movements carbamazepine [From Tegretol] Allergy Uncontrollable Verified 11/08/21 08:02 movements gabapentin Allergy Uncontrollable Verified 11/08/21 08:02 movements lamotrigine [From Lamictal] Allergy Uncontrollable Verified 11/08/21 08:02 movements celecoxib [From Celebrex] AdvReac Intermediate muscle Verified 11/08/21 08:02 cramps PFSH Anesthesia Medical History Acute bacterial sinusitis Anemia Arthralgia of both hands Balance problem Bilateral hearing loss Bilateral hip pain Bipolar I disorder, most recent episode mixed, severe without psychotic features Breast cancer screening by mammogram Cervical post-laminectomy syndrome Chronic diarrhea Chronic neck pain with history of cervical spinal surgery Chronic post-traumatic stress disorder Cigarette nicotine dependence COPD (chronic obstructive pulmonary disease) Cough Dyspareunia Elevated vitamin B12 level Encounter for long-term opiate analgesic use Encounter for medication management Fatigue Fibromyalgia Generalized anxiety disorder GERD (gastroesophageal reflux disease) Hand and foot pain Headache Hyperlipidemia, mixed Hypertension, benign Hypomagnesemia 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 Left hand pain Leg cramp Lower respiratory infection Memory change Memory loss Menopause Mixed hyperlipidemia Moderate persistent asthma Muscle pain Muscle spasm Myalgia Myalgia Myalgia due to statin Nausea Obstructive sleep apnea Osteoarthritis of spine Osteoarthritis, hip, bilateral Poverty status Psychiatric care Shortness of breath Skin sore Sleep apnea Sleep apnea in adult Patient had initial sleep study done, but titration portion of test has not been done Spinal cord stimulator status Sprain of left wrist Thoracic degenerative disc disease Vertigo Vitamin B 12 deficiency Vitamin D deficiency Weakness Wheezing Surgical History Colon polyps Patient will require surveillance colonoscopy in 5-years H/O oral surgery History of carpal tunnel release (03/22/19) Right, Dr. Franco History of carpal tunnel release (07/01/19) Left, Dr. Franco History of cholecystectomy History of fusion of cervical spine (~2011) [facility], C4-C5, C5-C6 History of fusion of cervical spine (03/22/19) Dr. Franco, C5-C6 Revision ACDFF, removal of prior C4-C6 plate/screw construct. Overactive bladder 2017 InterStim Therapy Family History Mother Hypercholesteremia Hypertension Diabetes Heart disease Stroke Family/Other Colon polyps Other Rheumatoid arthritis Denies family history of Lupus Social History Smoking and tobacco status: current every day smoker cigarettes Packs smoked per day: 1 Years cigarettes smoked: 40 Alcohol intake: never Household members: spouse Marital status: Current occupational status: student and disabled Current occupation: worker at [employer] - She has been off for two days History of recent travel: No Female Reproductive History Date of last menstrual period: 12/04/16 Data Anesthesia Cardiac Studies: No Data to Display
[2021-12-05] VITALS (28 sets, daily range): BP systolic 93–147; BP diastolic 64–95; PULSE 66–85; RESP 15–20; TEMP 36.2–37.1; O2SAT 91–100
--- NOTE | 2021-12-05 | SCC_ITS ---
Procedure done: 1. C2 - T2 Posterior spine fusion 2. C2 - T2 posterior cervical spine instrumentation 3. C3 laminectomy with partial facetectomies 4. C4 laminectomy with partial facetectomies 5. C5 laminectomy with partial facetectomies 6. C6 laminectomy with partial facetectomies 7. C7 laminectomy with partial facetectomies 8. Use of aurograft 9. Use of allograft 61.5 seconds of fluoroscopic guidance, for a cumulative dose of 7.05 mGy, was provided to Dr. López by the radiology department. C-arm images of the cervical spine were saved for the patient's permanent record. [facility]
[2021-12-05] MEDS: sodium chloride 0.9% 1,000 ML 30 ML IV (06:20)
--- NOTE | 2021-12-05 06:35 | P.ANESUD_ITS ---
Pre-Anesthetic Update Pre-Anesthetic Assessment: Date of Surgery/Procedure: 12/05/21 Preop Mercedes gnosis: Cervical Spondylosis with Myelopathy Proposed Procedure: Operation Date: 12/05/21 07:00 Proposed Procedures p Cervical Posterior Fusion C2-T2 13937/29463 X5/48110 X2/46115/M47.12/G89.28/Z98.890(Not Applicable) - Estuardoharry López, DO s Cervical Decompression(Not Applicable) - Estuardoharry López, DO Any changes to Pre-Anesthetic Assessment?: No Last Intake: Intake Last Liquid Date 12/04/21 Last Liquid Time 18:00 Last Solid Date 12/04/21 Last Solid Time 19:30 Vitals: Temperature 98 F 12/05/21 06:00 Temperature Source Temporal Artery S can 12/05/21 06:00 Pulse Rate 71 12/05/21 06:00 Respiratory Rate 16 12/05/21 06:00 Blood Pressure 117/83 12/05/21 06:00 Blood Pressure Aretha n 94 12/05/21 06:00 Pulse Oximetry 99 12/05/21 06:00 Oxygen Delivery Me thod 12/05/21 06:00 Exam: Pre-Anes Outpt Exam: alert, oriented x 3, clear to auscultation bilaterally and regular rate & rhythm Cardiac Studies: No Data to Display
--- NOTE | 2021-12-05 06:50 | P.HP_ITS ---
Providers/Chief Complaint Primary Care Provider: RAZA Harding Chief Complaint: cervical spondylosis with myelopathy, cervicalgia History of Present Illness Mariluz Prasad is a 51 year old female chronic neck pain with no known trauma.? Patient has a current CT of the C spine in her imaging for review at clinic today. Patient states pain has been ongoing for years.? Patient rates pain at 8/10 in clinic today and states that it does occasionally radiate down both arms. Onset: chronic Duration: years Characteristics: sharp ache Severity: 8 Location: neck Radiating symptoms: occasional bilateral arms Aggravating factors: movement Alleviating factors: none Neuro deficits: Bilateral occasional arm numbness, tingling, weakness. Prior tx: Previous C spine surgery from Dr. Franco 2011 Review of Systems Narrative: General ROS: negative for weight changes, fever ENT ROS: negative for nasal congestion, drainage or bleeding, sore throat, dysphagia or ear pain Eyes: PERRL Hematological and Lymphatic ROS: negative for swollen glands or abnormal bleeding Endocrine ROS: negative for polyuria/polydpsia or new changes in weight Respiratory ROS: negative for cough, shortness of breath, or wheezing Cardiovascular ROS: negative for chest pain or dyspnea on exertion Gastrointestinal ROS: negative for reflux, abdominal pain, change in bowel habits, or black or bloody stools Musculoskeletal ROS: negative for back pain, neck pain, or joint pain or swelling except for current problem Neurological ROS: negative for TIA or stoke symptoms Skin: no rashes Medications/Allergies Home Medications Medication Instructions Recorded Confirmed Last Taken Type albuterol sulfate 2.5 mg INHALATION Q6H PRN 09/20/19 12/05/21 12/04/21 History hydrocodone 7.5 mg-acetaminophen 1 tab PO Q6H PRN 07/18/20 12/05/21 12/04/21 History 325 mg tablet albuterol sulfate 90 mcg/actuation See Rx Instructions .ROUTE 11/15/20 12/05/21 12/05/21 Rx aerosol inhaler .COMPLEX #6.7 g CPAP and attachmen ts #1 ea 01/24/21 12/03/21 Unknown Rx nebulizers #1 ea 01/24/21 12/03/21 Unknown Rx rosuvastatin 20 mg tablet 20 mg PO DAILY 90 Days #90 tab 09/11/21 12/05/21 12/04/21 Rx [place] J collar #1 ea 11/06/21 12/03/21 Unknown Rx psyllium husk 3.4 gram/5.4 gram 2 tsp PO DAILY PRN 11/28/21 12/05/21 11/05/21 History oral powder (Metamucil) divalproex 250 mg tablet,delayed 250 mg PO .morning #30 tab 12/03/21 12/05/21 12/04/21 Rx release (Depakote) hydroxyzine pamoate 50 mg capsule 50 mg PO BID PRN #60 cap 12/03/21 12/05/21 12/04/21 Rx (Vistaril) lurasidone 20 mg tablet (Latuda) 20 mg PO .5 pm #30 tab 12/03/21 12/05/21 12/04/21 Rx prazosin 2 mg capsule 4 mg PO .bedtime #60 cap 12/03/21 12/05/21 12/04/21 Rx montelukast 10 mg tablet 10 mg PO BEDTIME 12/05/21 12/05/21 12/04/21 History omeprazole 20 mg capsule,delayed 20 mg PO DAILY 12/05/21 12/05/21 12/04/21 History release Allergies Allergy/AdvReac Type Severity Reaction Status Date / Time buprenorphine [From Butrans] Allergy Uncontrollable Verified 12/05/21 06:40 movements carbamazepine [From Tegretol] Allergy Uncontrollable Verified 12/05/21 06:40 movements gabapentin Allergy Uncontrollable Verified 12/05/21 06:40 movements lamotrigine [From Lamictal] Allergy Uncontrollable Verified 12/05/21 06:40 movements celecoxib [From Celebrex] AdvReac Intermediate muscle Verified 12/05/21 06:40 cramps PFSH Acute PFSH: Medical History Acute bacterial sinusitis Anemia Arthralgia of both hands Balance problem Bilateral hearing loss Bilateral hip pain Bipolar I disorder, most recent episode mixed, severe without psychotic features Breast cancer screening by mammogram Cervical post-laminectomy syndrome Chronic diarrhea Chronic neck pain with history of cervical spinal surgery Chronic post-traumatic stress disorder Cigarette nicotine dependence COPD (chronic obstructive pulmonary disease) Cough Dyspareunia Elevated vitamin B12 level Encounter for long-term opiate analgesic use Encounter for medication management Fatigue Fibromyalgia Generalized anxiety disorder GERD (gastroesophageal reflux disease) Hand and foot pain Headache Hyperlipidemia, mixed Hypertension, benign Hypomagnesemia 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 Left hand pain Leg cramp Lower respiratory infection Memory change Memory loss Menopause Mixed hyperlipidemia Moderate persistent asthma Muscle pain Muscle spasm Myalgia Myalgia Myalgia due to statin Nausea Obstructive sleep apnea Osteoarthritis of spine Osteoarthritis, hip, bilateral Poverty status Psychiatric care Shortness of breath Skin sore Sleep apnea Sleep apnea in adult Patient had initial sleep study done, but titration portion of test has not been done Spinal cord stimulator status Sprain of left wrist Thoracic degenerative disc disease Vertigo Vitamin B 12 deficiency Vitamin D deficiency Weakness Wheezing Surgical History Colon polyps Patient will require surveillance colonoscopy in 5-years H/O oral surgery History of carpal tunnel release (03/22/19) Right, Dr. Franco History of carpal tunnel release (07/01/19) Left, Dr. Franco History of cholecystectomy History of fusion of cervical spine (~2011) [facility], C4-C5, C5-C6 History of fusion of cervical spine (03/22/19) Dr. Franco, C5-C6 Revision ACDFF, removal of prior C4-C6 plate/screw construct. Overactive bladder 2017 InterStim Therapy Family History Mother Hypercholesteremia Hypertension Diabetes Heart disease Stroke Family/Other Colon polyps Other Rheumatoid arthritis Denies family history of Lupus Social History Smoking and tobacco status: current every day smoker cigarettes Packs smoked per day: 1 Years cigarettes smoked: 40 Alcohol intake: never Household members: spouse Marital status: Current occupational status: student and disabled Current occupation: worker at [employer] - She has been off for two days History of recent travel: No Female Reproductive History: Date of last menstrual period: 12/04/16 Vitals/I&O/Wt Last Vital Signs Temp 98 F 12/05/21 06:00 Pulse 71 12/05/21 06:00 Resp 16 12/05/21 06:00 BP 117/83 12/05/21 06:00 Pulse Ox 99 12/05/21 06:00 Physical Exam Narrative: CONSTITUTIONAL: The patient is a normal appearing [] in no apparent distress. GENERAL: Patient in no acute distress. CARDIAC: Regular rate and rhythm. CHEST: Normal inspiratory effort, normal respiratory rate. ABDOMEN: Soft and nontender. SKIN: Clear, warm and intact. NEURO?PSYCH: The patient is alert and oriented to person, place and time. Sensorv /SILT Motor StrengthShoulder abduction C5 5/5Wrist extension C6 5/5Elbow extension C7 5/5Hand Hospitality Director C8 5/5Finger abduction T15/5 Radial/ Ulnar/ Median n intact LowerSensory (SILT)Motor StrengthHin flexion L2/3Ant/inner thigh 5/5Hip adduction L2/3 5/5Knee extension L4 Lat thigh, 5/5Toe dorsiflexion L5 5/5Ankle dorsiflexion L5/ [id number] flexion S1 5/5 DTRBleeps 2+Triceps 2+Brachioradialis 2+Patellar 2+Achilles 2+ MUSCULOSKELETAL: UPPEREXTREMITIES: The patient had full active ROM in fingers, wrist, elbow, and shoulder. The patient demonstrated ability to fully flex/extend/abduct/adduct fingers, make ok sign, cross 2nd/3rd digits, extend 1st digit fully.. Radial pulse 2+, CR<2 seconds. LOWER EXTREMITIES: Pt has full, active ROM of toes, ankle, knee, and hip. Dorsalis pedis/posterior tibialis pulses 2+, CR<2 seconds. SPINE: Skin warm, dry, intact. A&P Assessment and plan (1) Cervical spondylosis with myelopathy: C2-T2 PSF with decompression Status: Acute Attestations Medical Necessity Statement*: failed conservitive therapy Coding Level of Care Code Acute Land Acquisition Analyst for [facility] Fwd Diagnoses Cervical spondylosis with myelopathy M47.12
[2021-12-05] MEDS: vancomycin 1,000 MG SDV 1000 MG XX (08:47)
--- NOTE | 2021-12-05 10:54 | XR_ITS ---
WS: [id number] XR cervical spine [facility] [id number] REASON FOR EXAM: OR PICS C-SP FUSION FINDINGS: Bilateral posterior pedicle screws at C2, C3, C4, and C5. Posterior pedicle screws cervicothoracic junction. XR/XR cervical spine 1[facility] [id number] IMPRESSION: Pedicle screw placements in surgery as above.
--- NOTE | 2021-12-05 11:18 | P.OP_ITS ---
Operative Report Date of procedure: December 05, 2021 Pre-op diagnosis: Preop Diagnosis Cervical Spondylosis with Myelopathy Post-op diagnosis: same Procedure done: 1. C2 - T2 Posterior spine fusion 2. C2 - T2 posterior cervical spine instrumentation 3. C3 laminectomy with partial facetectomies 4. C4 laminectomy with partial facetectomies 5. C5 laminectomy with partial facetectomies 6. C6 laminectomy with partial facetectomies 7. C7 laminectomy with partial facetectomies 8. Use of aurograft 9. Use of allograft Surgeon: Estuardo López Menhaden Vessel Pilot: Severo Gonzalez Menhaden Vessel Pilot: The surgical asst, Severo Gonzalez, PAC was needed for his expertise under the microscope. He was important and necessary throughout the procedure to complete in a safe and timely manner. He assisted with patient positioning prepping and draping tissue retraction suctioning of the operative field protection of the dural sac and tissue closure Estimated blood loss (mL): 250 Procedure: 1. C2 - T2 Posterior spine fusion 2. C2 - T2 posterior cervical spine instrumentation 3. C3 laminectomy with partial facetectomies 4. C4 laminectomy with partial facetectomies 5. C5 laminectomy with partial facetectomies 6. C6 laminectomy with partial facetectomies 7. C7 laminectomy with partial facetectomies 8. Use of aurograft 9. Use of allograft Patient is Patient was brought to the operative suite.? After undergoing anesthesia patient was positioned in the prone position all areas impingement well-padded.? Patient was then prepped and draped in normal sterile fashion.? Skin incision made from C2-T2.? Subperiosteal dissection was made from C2-T2.? Out to the edges of the lateral masses from C2 down to C7. the dissection was made out to the transverse processes of T1 and T2. The lateral edges of the lateral mass lamina's were dissected.? The retractors were then placed.? Attention was then brought to placing screws. The attention was brought to C2 pars screws. This was done under C-arm guidance. A high-speed bur was used followed by a drill and then the pars screw was placed. Lateral mass screws were placed in C3, C4, C5 and C6 bilaterally.? This was done by drilling and then placing the screw.? And peeling with a pedicle feeler.? Once the screws at C5 and C6 were placed attention was then brought to placing the pedicle screws at T1 and T2.? Again this was done by drilling the near cortex and then using the awl to track down the pedicle using C-arm guidance.? Using the pedicle feeler.? Then placing the screws.? These were all Luis Eduardo screws. Attention was brought to performing the laminectomies and partial facetectomies.? A high-speed drill was used to take down the lamina at C7 this was done bilaterally and then a Kerrison rongeur was used to undercut the bone lamina was then completely freed curved curette was then used to take down the ligamentum flavum inferiorly and then a Kerrison rongeur was used to cut through the ligamentum flavum and then the lamina was taken down.? The Kerrison rongeurs were then used to take down the medial aspect of facet joints bilaterally in order to facilitate decompressing the nerve roots. Next a high-speed drill was used to take down the lamina at C6 this was done bilaterally and then a Kerrison rongeur was used to undercut the bone lamina was then completely freed curved curette was then used to take down the ligamentum flavum inferiorly and then a Kerrison rongeur was used to cut through the ligamentum flavum and then the lamina was taken down.? The Kerrison rongeurs were then used to take down the medial aspect of facet joints bilaterally in order to facilitate decompressing the nerve roots. Next a high-speed drill was used to take down the lamina at C5 this was done bilaterally and then a Kerrison rongeur was used to undercut the bone lamina was then completely freed curved curette was then used to take down the ligamentum flavum inferiorly and then a Kerrison rongeur was used to cut through the ligamentum flavum and then the lamina was taken down.? The Kerrison rongeurs were then used to take down the medial aspect of facet joints bilaterally in order to facilitate decompressing the nerve roots. Next a high-speed drill was used to take down the lamina at C4 this was done bilaterally and then a Kerrison rongeur was used to undercut the bone lamina was then completely freed curved curette was then used to take down the ligamentum flavum inferiorly and then a Kerrison rongeur was used to cut through the ligamentum flavum and then the lamina was taken down.? The Kerrison rongeurs were then used to take down the medial aspect of facet joints bilaterally in order to facilitate decompressing the nerve roots Next a high-speed drill was used to take down the lamina at C3 this was done bilaterally and then a Kerrison rongeur was used to undercut the bone lamina was then completely freed curved curette was then used to take down the ligamentum flavum inferiorly and then a Kerrison rongeur was used to cut through the ligamentum flavum and then the lamina was taken down.? The Kerrison rongeurs were then used to take down the medial aspect of facet joints bilaterally in order to facilitate decompressing the nerve roots Next the rods are then were placed bilaterally.? The Screws Were Placed and Locked in Position from C2 to T2.? AP and Lateral Fluoroscopy Ensured That the Rods and Screws Are Probe Position.? Wounds Were Then Irrigated.? And Then High- Speed Drill Was Used To Decorticate the Lateral Masses and Transverse Processes and the T1-T2 Lamina.? Osteoamp Bone Graft Was Then Packed in the Lateral Gutters along with auro graft. Wound was then closed in a layered fashion after placing a drain and vancomycin powder.? The fascial layer was closed with 0 Vicryl skin was closed with 2-0 Vicryl Monocryl suture and Steri-Strips.? Sterile dressing was applied and cervical collar was applied and patient was flipped into the supine position and transferred to the PACU in stable condition.
--- NOTE | 2021-12-05 12:17 | PC.CHAP ---
Pastoral Care Encounter/Spiritual Assessment Type of Contact [] Declined special forces warrant officer visit [] Patient/Family/Request visit [] Outpatient visit [] Follow-up visit [] Physician referral [] Code/Alert [xx] Routine visit [] Staff referral [] Actively dying [] Patient sleeping [] Family support [] [] Out of room [] Palliative care [] [] Receiving care in room [] Pre-surgical visit [] Trauma [] Long length of stay [] ICU visit [] Other: Relational/Emotional Strength [] Patient feels connected with others/family/visitors/staff [] Distress [] Loneliness/isolation [] Abandonment Spirituality of Patient [] Person of Jamilah [] Attends Scientologist of their Jamilah [] Believes in Prayer [] Reads Bible or Pentecostalism materials [] There are Spiritual issues to be addressed Residential Appraiser Interventions [] Prayer [] Active listening [] Non-anxious presence [] Spiritual/emotional support [] Crisis/trauma care [] Spiritual counseling [] Bereavement support [] Provided bereavement packet [] Provided Bible/devotional materials [] Provided toy/stuffed animal, coloring book to patient or family member [] Provided Communion [] Anointing/[place] [] Salvation [] Completed spiritual assessment [] Other: Impact on Illness or Injury [] Angry [] Fearful [] Anxious [] Often cries [] Exhaustion [] Unable to work [] Unable to attend congregational [] Unable to walk/stand [] Unable to read [] Unable to drive [] Unable to eat/drink [] Unable to sleep [] Unable to be with family [] Patient intubated [] Other: Summary Time spent with patient
[2021-12-05] MEDS: fentaNYL 50 mcg/mL INJ 2mL IVP (12:23)
--- NOTE | 2021-12-05 15:17 | ANE.PACU2 ---
Inpatient post-anesthesia follow up: Airway intact: Yes Vital signs: Temperature 97.4 F Pulse Rate 72 Respiratory Rate 18 Blood Pressure 125/95 Pulse Oximetry 96 Oxygen Delivery Me thod Nasal Cannula Oxygen Flow Rate 1.5 Fraction of Inspir ed Oxygen Hydration adequate: Yes Nausea and vomiting: Yes Pain level: 2 Mental status: Baseline
--- NOTE | 2021-12-05 16:48 | PC.PHAR ---
pt states she takes care of her own medications-pt states she is no longer taking divalproex dr 500mg at 19:00 filled on 11/29/21 30d/s and not taking zoloft 100mg qam filled on 11/29/21 30d/s
[2021-12-05] MEDS: lurasidone 20 mg Tablet PO (17:53)
[2021-12-05] MEDS: docusate sodium 100 mg Capsule PO (18:01)
[2021-12-05] MEDS: montelukast sodium 10 mg Tablet PO (20:30)
[2021-12-05] MEDS: HYDROcodone-acetaminophen 7.5-325 mg Tablet 1 TAB PO (20:30)
[2021-12-05] MEDS: prazosin 1 mg Capsule 4 MG PO (20:43)
[2021-12-05] MEDS: ketorolac 30 mg/mL INJ IVP (22:44)
[2021-12-06] VITALS (7 sets, daily range): BP systolic 100–132; BP diastolic 67–78; PULSE 70–115; RESP 16–18; TEMP 36.8–36.9; O2SAT 92–96
[2021-12-06] MEDS: HYDROcodone-acetaminophen 7.5-325 mg Tablet 1 TAB PO (03:43)
[2021-12-06] MEDS: enoxaparin 40 mg/0.4 mL Syringe SUBCUT (07:12)
--- NOTE | 2021-12-06 08:12 | P.DS_ITS ---
Discharge Providers Date of Admission: 12/05/21 11:31 Date of Discharge: December 06, 2021 Attending Provider at Admission: Estuardo López DO Attending Provider at Discharge: Estuardo López DO Primary Care Provider: RAZA Harding Diagnoses at Discharge Discharge Diagnosis (1) Cervical spondylosis with myelopathy: Status: Acute Reason for Visit Reason for Visit: cervical spondylosis with myelopathy, cervicalgia Hospital Course Hospital Course uneventful Physical Exam Narrative: moving extemities; pain in neck Urinary Catheter Management: Alonzo Latex: Cath Placed During This Visit: yes Reason for Continuing Indwelling Catheter: Required Immobilization for Trauma or Surgery or Anesthesia Urinary Catheter Date of Insertion: 12/05/21 Urinary Catheter Time of Insertion: 08:05 Discharge Data Studies Completed and Pending Pending at discharge Category Date Time Status C-arm Fluoroscopy 95370 Routine Exams 12/05/21 05:27 Taken XR cervical spine 1Vport 89238 Routine Exams 12/05/21 10:54 Taken Vitals Last Vital Signs Temp 98.5 F 12/06/21 07:45 Pulse 106 H 12/06/21 07:50 Resp 18 12/06/21 07:50 BP 108/69 12/06/21 07:45 Pulse Ox 93 12/06/21 07:50 Discharge Plan Discharge Patient Disposition: Home Condition: Stable Prescriptions: New hydrocodone-acetaminophen 10-325 mg tablet 1 - 2 tab PO Q4H PRN (Reason: pain) 7 Days Qty: 40 0RF Continued hydrocodone-acetaminophen 7.5-325 mg tablet 1 tab PO Q6H PRN (Reason: Pain, Moderate) 0RF hydroxyzine pamoate [Vistaril] 50 mg capsule 50 mg PO BID PRN (Reason: anxiety) Qty: 60 3RF prazosin 2 mg capsule 4 mg PO .bedtime Qty: 60 3RF albuterol sulfate 2.5 mg /3 mL (0.083 %) solution for nebulization 2.5 mg INHALATION Q6H PRN (Reason: Shortness Of Breath) 0RF (DME) CPAP and attachmen ts See Rx Instructions .Route .MEDSUPPLY Qty: 1 0RF Rx Instructions: As directed (DME) nebulizers Misc See Rx Instructions .Route Qty: 1 0RF Rx Instructions: As directed (DME) [place] Ira J collar See Rx Instructions .Route .MEDSUPPLY Qty: 1 0RF Rx Instructions: As directed Metamucil 3.4 gram/5.4 gram powder 2 tsp PO DAILY PRN (Reason: Constipation) 0RF omeprazole 20 mg capsule,delayed release(DR/EC) 20 mg PO QAM 0RF montelukast 10 mg tablet 10 mg PO BEDTIME 0RF divalproex 250 mg tablet,delayed release (DR/EC) 250 mg PO QAM 0RF albuterol sulfate 90 mcg/actuation Hfa Aerosol Inhaler 2 puff INHALATION Q6H PRN (Reason: Shortness Of Breath) 0RF rosuvastatin 20 mg tablet 20 mg PO BEDTIME 0RF Latuda 20 mg tablet 20 mg PO DAILY@17 0RF Discharge Orders: Discharge Order (Routine); Ordered 12/06/21 Ordered By: Estuardo López Discharge Diet: Advance as tolerated Discharge Activity: Limit activity as instructed Patient Instructions: Opioid Safety Activity Restrictions/Additional Instructions: Thank you for choosing [facility] for your care! The following is a list of instructions, from your provider, to follow upon your discharge to ensure you have the optimal recovery from your recent injury or surgery. Posterior cervical Fusion: What to Expect at Home Your Recovery Follow-up care is a roberson part of your treatment and safety. Be sure to make and go to all appointments, and call your doctor if you are having problems. If you do not already have a follow-up appointment made, call office in the next 1-3 days to make follow up appointment for 2 weeks at [phone]. It is also a good idea to know your test results and keep a list of the medicines you take. You can expect your neck to feel stiff or sore after surgery. This should im prove in the weeks after surgery. But it may take 4 to 6 months for you to get better completely. You may have trouble sitting or standing in one position for very long and may need pain medicine in the weeks after your surgery. It may take 4 to 6 weeks to get back to your usual activities, but it may depend on what kind of surgery you had. Your throat will feel sore and it may be difficult to swallow for the first 3 days after your surgery. As long as you can get liquids down without difficulty, this should slowly improve, otherwise call our office or seek medical attention if it becomes increasingly difficult to get anything down including liquids. Avoid hot liquids for first 3-5 days. Soothing foods/liquids such as jello, pudding, and luke warm soups are recommended until swallowing improves. Staying elevated will also help, it's advised you keep propped up at while sleeping to help reduce the swelling. You may use an ice pack directly on your incision or around it on the front of your neck, using a cloth to protect your skin; and a heating pad to the back of your neck as needed. Do not use over the counter anti-inflammatory medications (Ibuprofen, Motrin, Aleve, Advil, etc) Taking these meds after having a fusion can delay fusion rates, we recommend you avoid them for the first 3 months after your surgery[address] Dr. López may advise you to work with a physical therapist to strengthen the muscles around your neck and back - this will be discussed at your follow - up appointments. The pain or numbness you were having in your arms before surgery should get better or go away completely. This care sheet gives you a general idea about how long it will take for you to recover. But each person recovers at a different pace. Follow the steps below to get better as quickly as possible. How can you care for yourself at home? Activity ? Rest when you feel tired. Getting enough sleep will help you recover. ? Try to walk each day. Start by walking a little more than you did the day before. Bit by bit, increase the amount you walk. Walking boosts blood flow and helps prevent pneumonia and constipation. Walking may also decrease your muscle soreness after surgery. ? No lifting anything that is more that 5 pounds. This may include heavy grocery bags and milk containers, a heavy briefcase or backpack, cat litter or dog food bags, a child, or a vacuum supervisor bottle house cleaners. ? Avoid strenuous activities, such as bicycle riding, jogging, weightlifting, or aerobic exercise, until your doctor says it is okay. ? Do not drive until your follow-up visit after your surgery, or until your doctor says it isokay. ? Avoid taking long car trips for 2 to 4 weeks after surgery. Your neck may become tired and painful from sitting too long in one position. ? You will probably need to take 4 to 6 weeks off from work. It depends on the type of work you do and how you feel. ? You may have sex as soon as you feel able, but avoid positions that put stress on your neck or cause pain. Diet ? You can eat your normal diet. If your stomach is upset, try bland, low-fat foods like plain rice, broiled chicken, toast, and yogurt ? Drink plenty of fluids. If you have kidney, heart, or liver disease and have to limit fluids, talk with your doctor before you increase the amount of fluids you drink. ? You may notice that your bowel movements are not regular right after your surgery. This is common. Try to avoid constipation and straining with bowel movements. You may want to take a fiber supplement every day. If you have not had a bowel movement after a couple of days, ask your doctor about taking a mild laxative. Medicines ? Take pain medicines exactly as directed. 1. If Dr. López gave you a prescription medicine for pain, take lt as prescribed. 2. Do not take two or more pain medicines at the same time unless the doctor told you to. Many pain medicines have acetaminophen, which is Tylenol. Too much acetaminophen {Tylenol) can be harmful. 3. If you think your pain pill is making you sick to your stomach: 4. Take your pills after meals (unless your doctor has told you not to). 5. Ask your Dr. for a different pain pill. Incisioncare ? Remove your dressing 48hours after your surgery. Ok to shower and get the incision wet. Do not overtly wash your incision. When done, pad dry, leave open to air thereafter. Avoid creams and ointments directly on your incision. ? Your sutures in the incision will dissolve and fall out on their own. ? Keep the area clean and dry. You may cover it with a gauze bandage if it weeps or rubs against clothing; if you choose to do this, change the dressing everyday. Other instructions ? Use a heating pad, hot water bottle, or gentle massage on your back to reduce stiffness. Avoid putting heat on your incision When should you call for help? ? Call 911 anytime you think you may need emergency care. For example, call if: ? You pass out (lose consciousness). ? You have sudden chest pain and shortness of breath, or you cough upblood. ? You cannot swallow. ? You have severe pain in your neck or back. ? Call your Dr. or seek immediate medical care if: ? You have pain that does not get better after you take pain pills. ? You have loose stitches, or your incision comes open. ? You have blood or fluid draining from the incision. ? You have signs of infection, such as: 1. Increased pain, swelling, warmth, or redness. 2. Red streaks leading from the site. 3. Pus draining from the site. 4. Swollen lymph nodes in your neck or armpits. 5. A fever. ? You have severe pain in your arms. ? You have new or increased weakness or numbness in your arms. ? Watch closely for any changes in your health, and be sure to contact your doctor if: ? You do not have a bowel movement after taking a laxative. Discharge Attestations Time Spent in Discharge Care*: less than 30 min Quality Metrics Clinical Quality Measures [ No reported AMI, CVA or VTE this stay] Coding Level of Care Code Acute [facility] note Diagnoses Cervical spondylosis with myelopathy M47.12
[2021-12-06] MEDS: atorvastatin 40 mg Tablet 20 MG PO (10:04)
[2021-12-06] MEDS: docusate sodium 100 mg Capsule PO ×2 (10:04→18:48)
[2021-12-06] MEDS: pantoprazole DR 40 mg Tablet PO (10:06)
--- NOTE | 2021-12-06 10:17 | PC.CHAP ---
Pastoral Care Encounter/Spiritual Assessment Type of Contact [x] Declined scooper visit [] Patient/Family/Request visit [] Outpatient visit [] Follow-up visit [] Physician referral [] Code/Alert [] Routine visit [] Staff referral [] Actively dying [] Patient sleeping [] Family support [] [] Out of room [] Palliative care [] [] Receiving care in room [] Pre-surgical visit [] Trauma [] Long length of stay [] ICU visit [] Other: Relational/Emotional Strength [] Patient feels connected with others/family/visitors/staff [] Distress [] Loneliness/isolation [] Abandonment Spirituality of Patient [] Person of Jamilah [] Attends Scientologist of their Jamilah [] Believes in Prayer [] Reads Bible or Hoahaoism materials [] There are Spiritual issues to be addressed Thresher [place]room[place] Interventions [] Prayer [] Active listening [] Non-anxious presence [] Spiritual/emotional support [] Crisis/trauma care [] Spiritual counseling [] Bereavement support [] Provided bereavement packet [] Provided Bible/devotional materials [] Provided toy/stuffed animal, coloring book to patient or family member [] Provided Communion [] Anointing/[place] [] Salvation [] Completed spiritual assessment [] Other: Impact on Illness or Injury [] Angry [] Fearful [] Anxious [] Often cries [] Exhaustion [] Unable to work [] Unable to attend restorationism [] Unable to walk/stand [] Unable to read [] Unable to drive [] Unable to eat/drink [] Unable to sleep [] Unable to be with family [] Patient intubated [] Other: Summary Declined scooper visit Time spent with patient 5 mins
[2021-12-06] MEDS: HYDROcodone-acetaminophen 7.5-325 mg Tablet PO ×3 (10:37→20:31)
[2021-12-06] MEDS: lurasidone 20 mg Tablet PO (18:48)
[2021-12-06] MEDS: montelukast sodium 10 mg Tablet PO (20:31)
[2021-12-06] MEDS: ketorolac 30 mg/mL INJ IVP (22:20)
[2021-12-07] VITALS: BP 131/84; PULSE 99; RESP 16; TEMP 37.4; O2SAT 92
[2021-12-07] MEDS: HYDROcodone-acetaminophen 7.5-325 mg Tablet PO ×3 (00:16→14:48)
[2021-12-07] MEDS: prazosin 1 mg Capsule 4 MG PO (00:42)
[2021-12-07 05:07] VITALS: BP 102/70; PULSE 101; RESP 20; TEMP 36.7; O2SAT 90
[2021-12-07] MEDS: enoxaparin 40 mg/0.4 mL Syringe SUBCUT (06:04)
--- NOTE | 2021-12-07 07:52 | P.PN_ITS ---
Subjective Subjective: pain improved Vitals/I&O/Wt Last Vital Signs Temp 98.1 F 12/07/21 05:07 Pulse 101 H 12/07/21 05:07 Resp 20 H 12/07/21 05:07 BP 102/70 12/07/21 05:07 Pulse Ox 90 12/07/21 05:07 12/06/21 12/07/21 12/07/21 22:59 06:59 14:59 Intake Total 240 / 240 Output Total 1499 250 / 2240 Balance -1500 / -1989 - Physical Exam Narrative: pain in arms hands improved Urinary Catheter Management: Alonzo Latex: Cath Placed During This Visit: yes, but has since been removed by the nurse Reason for Continuing Indwelling Catheter: Other Urinary Catheter Date of Insertion: 12/05/21 Urinary Catheter Time of Insertion: 08:05 Date Urinary Catheter Removed: 12/06/21 Time Urinary Catheter Discontinued: 12:30 A&P Assessment and plan (1) Encounter for postoperative care: POD#2 Posterior ervical fusion decompression D/C today Status: Acute Attestations Medical Necessity Statement*: d/c today Coding Level of Care Code Acute [employer] [facility] Diagnoses Encounter for postoperative care Z48.89
--- NOTE | 2021-12-07 07:55 | P.DS_ITS ---
Discharge Providers Date of Admission: 12/05/21 11:31 Date of Discharge: December 07, 2021 Attending Provider at Admission: Estuardo López DO Attending Provider at Discharge: Estuardo López DO Primary Care Provider: RAZA Harding Diagnoses at Discharge Discharge Diagnosis (1) Encounter for postoperative care: Status: Acute Reason for Visit Reason for Visit: cervical spondylosis with myelopathy, cervicalgia Hospital Course Hospital Course uneventful Physical Exam Urinary Catheter Management: Alonzo Latex: Cath Placed During This Visit: yes, but has since been removed by the nurse Reason for Continuing Indwelling Catheter: Other Urinary Catheter Date of Insertion: 12/05/21 Urinary Catheter Time of Insertion: 08:05 Date Urinary Catheter Removed: 12/06/21 Time Urinary Catheter Discontinued: 12:30 Discharge Data Studies Completed and Pending Completed Studies During Hospitalization Category Date Time Status XR cervical spine 1Vport 12135 Routine Exams 12/05/21 10:54 Completed Radiology Impressions Cervical Spine X-Ray 12/05/21 10:54 IMPRESSION: Pedicle screw placements in surgery as above. Vitals Last Vital Signs Temp 98.1 F 12/07/21 05:07 Pulse 101 H 12/07/21 05:07 Resp 20 H 12/07/21 05:07 BP 102/70 12/07/21 05:07 Pulse Ox 90 12/07/21 05:07 Discharge Plan Discharge Patient Disposition: Home Condition: Stable Prescriptions: New hydrocodone-acetaminophen 10-325 mg tablet 1 - 2 tab PO Q4H PRN (Reason: pain) 7 Days Qty: 40 0RF Continued hydrocodone-acetaminophen 7.5-325 mg tablet 1 tab PO Q6H PRN (Reason: Pain, Moderate) 0RF hydroxyzine pamoate [Vistaril] 50 mg capsule 50 mg PO BID PRN (Reason: anxiety) Qty: 60 3RF prazosin 2 mg capsule 4 mg PO .bedtime Qty: 60 3RF albuterol sulfate 2.5 mg /3 mL (0.083 %) solution for nebulization 2.5 mg INHALATION Q6H PRN (Reason: Shortness Of Breath) 0RF (DME) CPAP and attachmen ts See Rx Instructions .Route .MEDSUPPLY Qty: 1 0RF Rx Instructions: As directed (DME) nebulizers Misc See Rx Instructions .Route Qty: 1 0RF Rx Instructions: As directed (DME) Georgina rodas See Rx Instructions .Route .MEDSUPPLY Qty: 1 0RF Rx Instructions: As directed Metamucil 3.4 gram/5.4 gram powder 2 tsp PO DAILY PRN (Reason: Constipation) 0RF omeprazole 20 mg capsule,delayed release(DR/EC) 20 mg PO QAM 0RF montelukast 10 mg tablet 10 mg PO BEDTIME 0RF divalproex 250 mg tablet,delayed release (DR/EC) 250 mg PO QAM 0RF albuterol sulfate 90 mcg/actuation Hfa Aerosol Inhaler 2 puff INHALATION Q6H PRN (Reason: Shortness Of Breath) 0RF rosuvastatin 20 mg tablet 20 mg PO BEDTIME 0RF Latuda 20 mg tablet 20 mg PO DAILY@17 0RF Discharge Orders: Discharge Order (Routine); Ordered 12/06/21 Ordered By: Estuardo López Referrals: Estuardo López, DO [Physician] - 12/18/21 9:15 am Discharge Diet: Advance as tolerated Discharge Activity: Limit activity as instructed Patient Instructions: Hydrocodone/Acetaminophen (By mouth) (Vicodin, [place], Lortab), Cervical Spinal Stenosis (DC), Laminectomy (DC), Opioid Safety Activity Restrictions/Additional Instructions: Thank you for choosing [facility] for your care! The following is a list of instructions, from your provider, to follow upon your discharge to ensure you have the optimal recovery from your recent injury or surgery. Posterior cervical Fusion: What to Expect at Home Your Recovery Follow-up care is a roberson part of your treatment and safety. Be sure to make and go to all appointments, and call your doctor if you are having problems. If you do not already have a follow-up appointment made, call office in the next 1-3 days to make follow up appointment for 2 weeks at [phone]. It is also a good idea to know your test results and keep a list of the medicines you take. You can expect your neck to feel stiff or sore after surgery. This should improve in the weeks after surgery. But it may take 4 to 6 months for you to get better completely. You may have trouble sitting or standing in one position for very long and may need pain medicine in the weeks after your surgery. It may take 4 to 6 weeks to get back to your usual activities, but it may depend on what kind of surgery you had. Your throat will feel sore and it may be difficult to swallow for the first 3 days after your surgery. As long as you can get liquids down without difficulty, this should slowly improve, otherwise call our office or seek medical attention if it becomes increasingly difficult to get anything down including liquids. Avoid hot liquids for first 3-5 days. Soothing foods/liquids such as jello, pudding, and luke warm soups are recommended until swallowing improves. Staying elevated will also help, it's advised you keep propped up at while sleeping to help reduce the swelling. You may use an ice pack directly on your incision or around it on the front of your neck, using a cloth to protect your skin; and a heating pad to the back of your neck as needed. Do not use over the counter anti-inflammatory medications (Ibuprofen, Motrin, Aleve, Advil, etc) Taking these meds after having a fusion can delay fusion rates, we recommend you avoid them for the first 3 months after your surgery. Dr. López may advise you to work with a physical therapist to strengthen the muscles around your neck and back - this will be discussed at your follow - up appointments. The pain or numbness you were having in your arms before surgery should get better or go away completely. This care sheet gives you a general idea about how long it will take for you to recover. But each person recovers at a different pace. Follow the steps below to get better as quickly as possible. How can you care for yourself at home? Activity ? Rest when you feel tired. Getting enough sleep will help you recover. ? Try to walk each day. Start by walking a little more than you did the day before. Bit by bit, increase the amount you walk. Walking boosts blood flow and helps prevent pneumonia and constipation. Walking may also decrease your muscle soreness after surgery. ? No lifting anything that is more that 5 pounds. This may include heavy grocery bags and milk containers, a heavy briefcase or backpack, cat litter or dog food bags, a child, or a vacuum photo mask cleaner. ? Avoid strenuous activities, such as bicycle riding, jogging, weightlifting, or aerobic exercise, until your doctor says it is okay. ? Do not drive until your follow-up visit after your surgery, or until your doctor says it isokay. ? Avoid taking long car trips for 2 to 4 weeks after surgery. Your neck may become tired and painful from sitting too long in one position. ? You will probably need to take 4 to 6 weeks off from work. It depends on the type of work you do and how you feel. ? You may have sex as soon as you feel able, but avoid positions that put stress on your neck or cause pain. Diet ? You can eat your normal diet. If your stomach is upset, try bland, low-fat foods like plain rice, broiled chicken, toast, and yogurt ? Drink plenty of fluids. If you have kidney, heart, or liver disease and have to limit fluids, talk with your doctor before you increase the amount of fluids you drink. ? You may notice that your bowel movements are not regular right after your surgery. This is common. Try to avoid constipation and straining with bowel movements. You may want to take a fiber supplement every day. If you have not had a bowel movement after a couple of days, ask your doctor about taking a mild laxative. Medicines ? Take pain medicines exactly as directed. 1. If Dr. López gave you a prescription medicine for pain, take lt as prescribed. 2. Do not take two or more pain medicines at the same time unless the doctor told you to. Many pain medicines have acetaminophen, which is Tylenol. Too much acetaminophen {Tylenol) can be harmful. 3. If you think your pain pill is making you sick to your stomach: 4. Take your pills after meals (unless your doctor has told you not to). 5. Ask your Dr. for a different pain pill. Incisioncare ? Remove your dressing 48hours after your surgery. Ok to shower and get the incision wet. Do not overtly wash your incision. When done, pad dry, leave open to air thereafter. Avoid creams and ointments directly on your incision. ? Your sutures in the incision will dissolve and fall out on their own. ? Keep the area clean and dry. You may cover it with a gauze bandage if it weeps or rubs against clothing; if you choose to do this, change the dressing everyday. Other instructions ? Use a heating pad, hot water bottle, or gentle massage on your back to reduce stiffness. Avoid putting heat on your incision When should you call for help? ? Call 911 anytime you think you may need emergency care. For example, call if: ? You pass out (lose consciousness). ? You have sudden chest pain and shortness of breath, or you cough upblood. ? You cannot swallow. ? You have severe pain in your neck or back. ? Call your Dr. or seek immediate medical care if: ? You have pain that does not get better after you take pain pills. ? You have loose stitches, or your incision comes open. ? You have blood or fluid draining from the incision. ? You have signs of infection, such as: 1. Increased pain, swelling, warmth, or redness. 2. Red streaks leading from the site. 3. Pus draining from the site. 4. Swollen lymph nodes in your neck or armpits. 5. A fever. ? You have severe pain in your arms. ? You have new or increased weakness or numbness in your arms. ? Watch closely for any changes in your health, and be sure to contact your doctor if: ? You do not have a bowel movement after taking a laxative. Discharge Attestations Time Spent in Discharge Care*: less than 30 min Quality Metrics Clinical Quality Measures [ No reported AMI, CVA or VTE this stay] Coding Level of Care Code Acute [facility] note Diagnoses Encounter for postoperative care Z48.89
[2021-12-07 07:58] VITALS: BP 121/82; PULSE 96; RESP 16; TEMP 36.8; O2SAT 92
[2021-12-07 08:08] VITALS: RESP 16
[2021-12-07] MEDS: morphine 4 mg/mL SDV 1 mL 2 MG IVP (08:08)
[2021-12-07] MEDS: docusate sodium 100 mg Capsule PO (08:09)
[2021-12-07] MEDS: atorvastatin 40 mg Tablet 20 MG PO (08:09)
[2021-12-07] MEDS: pantoprazole DR 40 mg Tablet PO (08:09)
[2021-12-07] MEDS: ketorolac 30 mg/mL INJ IVP (10:42)
[2021-12-07 10:51] VITALS: BP 124/80; PULSE 97; RESP 16; TEMP 36.5; O2SAT 93
--- NOTE | 2021-12-07 14:13 | PC.NURSE ---
Pt states to this nurse as she is looking through her belongings that 70$ in [place]bed[place] is not in there. Security and malt house supervisor called and at bedside and also can't locate money in any belongings or pyxis machine. linen room supervisor in room and states to patient that she will be issued a check and mailed to her house on Friday. Pt is agreeable.
--- NOTE | 2021-12-07 14:23 | PC.NURSE ---
Pt request to pick check up on Friday. Particle Board Supervisor notified and states that is okay.
== END 2021-12-07 15:30 | disposition home or self-care (01) | DRG 460 ==
LOC: MEDSURG 11:33
PROVIDERS: Admitting Provider Orthopaedic Surgery; PCP Nurse Practitioner Family; Visit Provider Orthopaedic Surgery
PROC: 0RG6071 Fusion of Thoracic Vertebral Joint with Autologous Tissue Substitute, Posterior Approach, Posterior Column, Open Approach (ICD-10-PCS; CPT 22600; principal; 2021-12-05 07:00)
PROC: 0RG6071 Fusion of Thoracic Vertebral Joint with Autologous Tissue Substitute, Posterior Approach, Posterior Column, Open Approach (ICD-10-PCS; CPT 63001; 2021-12-05 07:00)
DX: M47.12 Other spondylosis with myelopathy, cervical region (principal); F31.63 Bipolar disorder, current episode mixed, severe, without psychotic features; G89.29 Other chronic pain; H91.93 Unspecified hearing loss, bilateral; F43.12 Post-traumatic stress disorder, chronic; F17.210 Nicotine dependence, cigarettes, uncomplicated; J44.9 Chronic obstructive pulmonary disease, unspecified; M79.7 Fibromyalgia; F41.1 Generalized anxiety disorder; K21.9 Gastro-esophageal reflux disease without esophagitis; E78.2 Mixed hyperlipidemia; I10 Essential (primary) hypertension; G47.33 Obstructive sleep apnea (adult) (pediatric); Z98.1 Arthrodesis status; Z79.51 Long term (current) use of inhaled steroids; Z79.891 Long term (current) use of opiate analgesic
CPT/HCPCS: 51702; 72020; 76000; 96372; 97116; 97162; C1713; J0330; J0690; J1100; J1170; J1650; J1885; J2250; J2270; J2370; J2405; J2704; J2710; J3010; J3370; J3490; J7030

== ENCOUNTER → 2021-12-17 15:28 | Outpatient (BNVA) | payer MEDICARE, MEDICAID, SELFPAY | PROVIDERS: PCP Nurse Practitioner Family; Visit Provider Nurse Practitioner Family | DX: R10.9 Unspecified abdominal pain (principal); R73.09 Other abnormal glucose; E53.8 Deficiency of other specified B group vitamins; I10 Essential (primary) hypertension; E83.42 Hypomagnesemia; E78.2 Mixed hyperlipidemia; E55.9 Vitamin D deficiency, unspecified | CPT/HCPCS: 80053; 80061; 81003; 82306; 83036; 83735; 83921; 84100; 84443; 85025 ==

== ENCOUNTER → 2022-01-15 07:58 | Outpatient (BNVA) | payer MEDICARE, MEDICAID, SELFPAY | PROVIDERS: PCP Nurse Practitioner Family; Visit Provider Orthopaedic Surgery | DX: Z47.89 Encounter for other orthopedic aftercare; Z98.890 Other specified postprocedural states; Z98.1 Arthrodesis status; R32 Unspecified urinary incontinence | CPT/HCPCS: 72040 ==

== ENCOUNTER → 2022-01-21 07:19 | Outpatient (BNVA) | payer MEDICARE, MEDICAID, SELFPAY | PROVIDERS: PCP Nurse Practitioner Family; Visit Provider Nurse Practitioner Psychiatric/Mental Health | DX: F43.12 Post-traumatic stress disorder, chronic (principal); F31.63 Bipolar disorder, current episode mixed, severe, without psychotic features; F41.1 Generalized anxiety disorder; Z59.6 Low income; F17.210 Nicotine dependence, cigarettes, uncomplicated | CPT/HCPCS: 99214 ==

== ENCOUNTER → 2022-02-25 07:16 | Outpatient (BNVA) | payer MEDICARE, MEDICAID, SELFPAY | PROVIDERS: PCP Nurse Practitioner Family; Visit Provider Nurse Practitioner Psychiatric/Mental Health | DX: F43.12 Post-traumatic stress disorder, chronic (principal); F31.63 Bipolar disorder, current episode mixed, severe, without psychotic features; F41.1 Generalized anxiety disorder; Z59.6 Low income; F17.210 Nicotine dependence, cigarettes, uncomplicated | CPT/HCPCS: 99214 ==

== ENCOUNTER → 2022-02-26 09:47 | Outpatient (BNVA) | payer MEDICARE, MEDICAID, SELFPAY | PROVIDERS: PCP Nurse Practitioner Family; Visit Provider Orthopaedic Surgery | DX: Z47.89 Encounter for other orthopedic aftercare (principal); Z98.1 Arthrodesis status; Z98.890 Other specified postprocedural states | CPT/HCPCS: 72040; 99024 ==

== ENCOUNTER → 2022-03-04 08:04 | Outpatient (BNVA) | payer MEDICARE, MEDICAID, SELFPAY | PROVIDERS: PCP Nurse Practitioner Family; Visit Provider Nurse Practitioner Family | DX: N39.46 Mixed incontinence (principal); N32.81 Overactive bladder; R32 Unspecified urinary incontinence | CPT/HCPCS: 51798; 81003; 99203 ==

== ENCOUNTER 2022-03-05 06:00 | Outpatient (RCR) | payer MEDICARE, MEDICAID, SELFPAY | END 2022-03-21 23:59 | disposition home or self-care (01) | LOC: WPT 06:00 | PROVIDERS: PCP Nurse Practitioner Family; Referring Provider Orthopaedic Surgery; Visit Provider Orthopaedic Surgery | DX: Z98.1 Arthrodesis status (principal) | CPT/HCPCS: 97110; 97161; 97530 ==

== ENCOUNTER 2022-03-22 06:00 | Outpatient (RCR) | payer MEDICARE, MEDICAID, SELFPAY | END 2022-04-21 23:59 | disposition home or self-care (01) | LOC: WPT 06:00 | PROVIDERS: PCP Nurse Practitioner Family; Referring Provider Orthopaedic Surgery; Visit Provider Orthopaedic Surgery | DX: M51.34 Other intervertebral disc degeneration, thoracic region (principal); M51.16 Intervertebral disc disorders with radiculopathy, lumbar region | CPT/HCPCS: 97110 ==

== ENCOUNTER 2022-04-22 06:00 | Outpatient (RCR) | payer MEDICARE, MEDICAID, SELFPAY | END 2022-05-22 23:59 | disposition home or self-care (01) | LOC: WPT 06:00 | PROVIDERS: PCP Nurse Practitioner Family; Visit Provider Orthopaedic Surgery | DX: Z98.1 Arthrodesis status (principal) | CPT/HCPCS: 97110; 97164 ==

== ENCOUNTER → 2022-05-07 13:11 | Outpatient (BNVA) | payer MEDICARE, SELFPAY | PROVIDERS: PCP Nurse Practitioner Family; Visit Provider Nurse Practitioner | DX: M54.9 Dorsalgia, unspecified (principal) | CPT/HCPCS: 87086 ==

== ENCOUNTER → 2022-06-06 14:38 | Outpatient (BNVA) | payer MEDICARE, MEDICAID, SELFPAY | PROVIDERS: PCP Nurse Practitioner; Visit Provider Nurse Practitioner Psychiatric/Mental Health | DX: Z79.899 Other long term (current) drug therapy (principal); D64.9 Anemia, unspecified; E55.9 Vitamin D deficiency, unspecified; I10 Essential (primary) hypertension | CPT/HCPCS: 80053; 80164; 82652; 83540; 85025 ==

== ENCOUNTER → 2022-06-25 10:08 | Outpatient (BNVA) | payer MEDICARE, MEDICAID, SELFPAY | PROVIDERS: PCP Nurse Practitioner; Visit Provider Nurse Practitioner | DX: R94.4 Abnormal results of kidney function studies (principal) | CPT/HCPCS: 80053 ==

== ENCOUNTER → 2022-07-25 14:45 | Outpatient (BNVA) | payer MEDICARE, MEDICAID, SELFPAY | PROVIDERS: PCP Nurse Practitioner; Visit Provider Nurse Practitioner | DX: R11.0 Nausea (principal) | CPT/HCPCS: 87400 ==

== ENCOUNTER → 2022-11-12 11:07 | Outpatient (BNVA) | payer MEDICARE, MEDICAID, SELFPAY | PROVIDERS: PCP Nurse Practitioner; Visit Provider Physician Assistant | DX: G89.28 Other chronic postprocedural pain (principal); Z98.890 Other specified postprocedural states; Z98.1 Arthrodesis status | CPT/HCPCS: 72040; 99213 ==

== ENCOUNTER → 2023-01-28 15:30 | Outpatient (BNVA) | payer MEDICARE, MEDICAID, SELFPAY | PROVIDERS: PCP Nurse Practitioner; Visit Provider Nurse Practitioner | DX: M79.622 Pain in left upper arm (principal) | CPT/HCPCS: 73060 ==

== ENCOUNTER 2023-05-12 09:05 | Outpatient (CLI) | payer MEDICARE, MEDICAID, SELFPAY ==
--- NOTE | 2023-05-12 09:25 | CT_ITS ---
WS: [id number] CT LUMBAR SPINE TECHNIQUE: Noncontrast CT of the lumbar spine with coronal and sagittal reformatted images. CLINICAL INFORMATION: SPINAL STENOSIS,LUMBAR REGION W/O NEUROGENIC CLAUDICATION COMPARISON: CT 04/19/2020 DLP: 421.[address] scans at [facility] use at least one of these dose optimization techniques: automated e xposure control; mA and/or kV adjustment per patient size (includes targeted exams where dose is matc hed to clinical indication); or iterative reconstruction. FINDINGS: Partially visualized spinal stimulator extending off the [id number]. Mild spondylitic changes lumb ar spine. Disc space narrowing worse at L5-S1 with disc osteophyte complex. Cholecystectomy clips. Adrenal glands are normal. T12-L1: LEFT paracentral disc osteophyte protrusion. Slight narrowing of the LEFT subarticular recess . Spinal canal and foramen are patent. L1-L2: Disc osteophyte complex with endplate ridging. Mild LEFT bony foraminal narrowing. L2-L3: Mild annular bulging. Moderate facet arthropathy. Spinal canal and foramen are patent. L3-L4: Mild annular bulging. Moderate facet arthropathy. Spinal canal and foramen are patent. L4-L5: Mild annular bulging. Mild central canal stenosis with narrowing of the subarticular recess. M oderate facet arthropathy ligamentum flavum hypertrophy. Mild RIGHT foraminal narrowing. L5-S1: Disc space narrowing with disc osteophyte protrusion. Mild central canal stenosis with slight impingement traversing S1 nerve roots. Mild to moderate RIGHT and mild LEFT foraminal narrowing. Visualized pelvic bony structures: Normal. Paravertebral soft tissues: Normal. IMPRESSION: 1. Mild central canal stenosis L4-5 with narrowing of the subarticular recess bilaterally appears un changed compared to previous. 2. Disc osteophyte protrusion L5-S1 similar to previous with impingement traversing S1 nerve roots b ilaterally and mild central canal stenosis. 3. Mild to moderate RIGHT L5-S1 foraminal narrowing appears unchanged. 4. Moderate facet arthropathy L4-L5 and L5-S1 with ligamentum flavum hypertrophy.
== END 2023-05-12 09:06 | disposition home or self-care (01) ==
LOC: RAD 09:07
PROVIDERS: PCP Nurse Practitioner; Visit Provider Nurse Practitioner
DX: M48.061 Spinal stenosis, lumbar region without neurogenic claudication (principal); M51.27 Other intervertebral disc displacement, lumbosacral region
CPT/HCPCS: 72131

== ENCOUNTER → 2023-06-16 09:44 | Outpatient (BNVA) | payer MEDICAID, SELFPAY | PROVIDERS: PCP Family Medicine; Referring Provider Family Medicine; Visit Provider Internal Medicine Cardiovascular Disease | DX: R00.2 Palpitations (principal); I49.1 Atrial premature depolarization; I49.3 Ventricular premature depolarization; I47.1 Supraventricular tachycardia | CPT/HCPCS: 93225 ==

== ENCOUNTER → 2023-12-15 10:21 | Outpatient (BNVA) | payer SELFPAY | PROVIDERS: PCP Nurse Practitioner Family; Visit Provider Nurse Practitioner Family | DX: I10 Essential (primary) hypertension (principal); E78.2 Mixed hyperlipidemia; R53.83 Other fatigue; E83.42 Hypomagnesemia; Z79.899 Other long term (current) drug therapy | CPT/HCPCS: 80053; 80061; 81003; 83036; 83735; 84443; 85025 ==

== ENCOUNTER → 2023-12-24 09:42 | Outpatient (BNVA) | payer MEDICAID, SELFPAY | PROVIDERS: PCP Nurse Practitioner Family; Visit Provider Nurse Practitioner Family | DX: E55.9 Vitamin D deficiency, unspecified (principal); S97.81XA Crushing injury of right foot, initial encounter; S90.31XA Contusion of right foot, initial encounter; X58.XXXA Exposure to other specified factors, initial encounter; M72.2 Plantar fascial fibromatosis; R71.8 Other abnormality of red blood cells; N39.0 Urinary tract infection, site not specified | CPT/HCPCS: 73630; 82306; 82607; 82746; 83921 ==

== ENCOUNTER 2024-01-08 13:27 | Outpatient (CLI) | payer MEDICAID, SELFPAY ==
[2024-01-08 14:00] LABS: Basophils # 0.1 10^3/uL (0.0-0.1); Basophils % 0.7 %; Eosinophils # 1.6 10^3/uL (0.0-0.8); Eosinophils % 21.5 %; Hematocrit 36.6 % (36-47); Lymphocytes # 2.9 10^3/uL (0.8-4.8); Lymphocytes % 40.4 %; Mean Corpuscular HGB Conc 33.9 g/dL (30-55); Mean Corpuscular Hemoglobin 33.4 pg (27-33); Mean Corpuscular Volume 98.7 fl (85-98); Monocytes # 0.4 10^3/uL (0.2-0.9); Monocytes % 5.1 %; Neutrophils # 2.32 10^3/uL (1.8-7.7); Neutrophils % 32.2 %; Nucleated Red Blood Cells % 0 %; Platelet Count 204 10^3/cmm (157-399); Red Blood Count 3.71 10^6/uL (3.85-5.65); White Blood Count 7.22 10^3/uL (3.29-11.43)
[2024-01-08 14:04] LABS: Erythrocyte Sedimentation Rate 1 mm/hr (0-15)
[2024-01-08 14:15] LABS: Alanine Aminotransferase 11 U/L (0-33); Albumin Level 4.1 g/dL (3.5-5.2); Alkaline Phosphatase 83 U/L (35-105); Aspartate Amino Transferase 13 U/L (0-32); Blood Urea Nitrogen 15 mg/dL (6-20); Calcium 9.1 mg/dL (8.5-10.5); Carbon Dioxide 26 mmol/L (22-29); Chloride 109 mmol/L (98-107); Globulin 2.2 g/dL (1.3-4.6); Glomerular Filtration Rate 65.2 mL/min (90-130); Glucose 100 mg/dL (65-115); Osmolality Calculated 293 mOsm/kg (285-295); Sodium 141 mmol/L (136-145); Total Bilirubin 0.2 mg/dL (0.15-1.2); Total Protein 6.3 g/dL (6.6-8.7)
== END 2024-01-08 13:28 | disposition home or self-care (01) ==
LOC: LAB 13:30
PROVIDERS: Absent Provider Podiatrist Foot & Ankle Surgery; PCP Nurse Practitioner Family; Visit Provider Podiatrist Foot & Ankle Surgery
DX: S97.81XA Crushing injury of right foot, initial encounter (principal); X58.XXXA Exposure to other specified factors, initial encounter
CPT/HCPCS: 36415; 73630; 80053; 85025; 85651; 86140; 99203

== ENCOUNTER → 2024-01-21 13:05 | Outpatient (BNVA) | payer MEDICAID, SELFPAY | PROVIDERS: PCP Nurse Practitioner Family; Visit Provider Podiatrist Foot & Ankle Surgery | DX: L03.90 Cellulitis, unspecified; S90.851A Superficial foreign body, right foot, initial encounter; W22.8XXA Striking against or struck by other objects, initial encounter | CPT/HCPCS: 99213 ==

== ENCOUNTER 2024-02-04 11:50 | Outpatient (CLI) | payer MEDICAID, SELFPAY ==
--- NOTE | 2024-02-04 12:45 | US_ITS ---
WS: [id number] ULTRASOUND SOFT TISSUES RIGHT foot HISTORY: S90.31XA - Contusion of right foot, initial encounter COMPARISON: None available. TECHNIQUE: 2-D and color Doppler imaging is submitted. Ultrasound is directed between the first and second toes. There is no mass or fluid collection identi fied. No Steele's neuroma or bursitis. US/US soft tissue/extremity [id number] IMPRESSION: Ultrasound directed to the first intermetatarsal space. No abnormality identifi ed.
== END 2024-02-04 11:51 | disposition home or self-care (01) ==
LOC: RAD 11:50
PROVIDERS: PCP Nurse Practitioner Family; Visit Provider Podiatrist Foot & Ankle Surgery
DX: S90.31XA Contusion of right foot, initial encounter (principal); M79.5 Residual foreign body in soft tissue; X58.XXXA Exposure to other specified factors, initial encounter
CPT/HCPCS: 76882

== ENCOUNTER → 2024-02-20 08:39 | Outpatient (BNVA) | payer MEDICAID, SELFPAY | PROVIDERS: PCP Nurse Practitioner Family; Visit Provider Podiatrist Foot & Ankle Surgery | DX: M79.671 Pain in right foot (principal) | CPT/HCPCS: 99213 ==

== ENCOUNTER → 2024-04-22 13:15 | Outpatient (BNVA) | payer MEDICAID, SELFPAY | PROVIDERS: PCP Nurse Practitioner Family; Visit Provider Podiatrist Foot & Ankle Surgery | DX: L60.0 Ingrowing nail (principal) | CPT/HCPCS: 99213 ==

== ENCOUNTER 2024-08-26 16:22 | Emergency (ER) | payer MEDICAID, SELFPAY ==
[2024-08-26 16:29] VITALS: BP 126/83; PULSE 90; TEMP 36.7; O2SAT 100; BMI 28.1
--- NOTE | 2024-08-26 16:44 | ED_ITS ---
HPI - Back Pain/Injury General: Chief Complaint: Back Pain/Injury Stated Complaint: sharp pains on left side Time Seen by Provider: 08/26/24 16:40 Source: patient Mode of arrival: ambulatory Limitations: no limitations History of Present Illness: Patient is 54-year-old female presents to ED today with complaint of left lower back pain that has been present for many months. Patient states she is here today stating her pain is slightly worse than baseline. She is not having any radicular symptoms into her lower extremities. She is ambulatory here without difficulty or assistance. Patient states she has been seen by her primary care provider for this complaint. She is not having any fevers. Denies any saddle anesthesia or bowel/bladder incontinence/retention. No recent injury or trauma. MD elicited complaint: back pain Onset (ago): month(s) Timing: constant Severity: moderate Similar Symptoms Previously: Yes Location: left lower back Radiation: none Exacerbating factors: movement, lifting and other (bending) Relieving factors: none Associated symptoms: Reports no associated symptoms; Deny abdominal pain, chills, difficulty walking, dysuria, fatigue, fever(s) or hematuria Work related injury: No Related Data Home Medications Medication Instructions Recorded Confirmed psyllium husk 3.4 gram/5.4 gram 2 tsp PO DAILY PRN Constipation 11/28/21 08/26/24 oral powder (Metamucil) budesonide 160 mcg-glycopyr 9 2 inh inhalation BID 06/04/23 08/26/24 mcg-formot 4.8 mcg/actuation HFA inhaler (Breztri Aerosphere) Previous Rx's Medication Instructions Recorded nebulizers #1 ea 01/24/21 [place] J collar #1 ea 11/06/21 Bone Growth Stimulator E0748 #1 ea 12/14/21 flash glucose scanning reader #1 ea 01/21/22 (FreeStyle Paul 14 Day [place]) flash glucose sensor (FreeStyle #1 kit 04/22/22 Paul 14 Day Sensor kit) flash glucose sensor (FreeStyle #1 kit 06/03/22 Paul 14 Day Sensor kit) montelukast 10 mg tablet See Rx Instructions .Route 09/16/23 .COMPLEX #30 tabs cholecalciferol (vitamin D3) 1,250 50,000 unit PO .weekly #12 caps 04/11/24 mcg (50,000 unit) capsule ciprofloxacin HCl 500 mg tablet 500 mg PO BID #20 tabs 01/21/24 (Cipro) omeprazole 40 mg capsule,delayed See Rx Instructions .Route 08/11/24 release .COMPLEX #30 caps hydroxyzine HCl 10 mg tablet 10 mg PO TID PRN anxiety #90 tabs 08/26/24 ibuprofen 600 mg tablet 600 mg PO Q8H PRN pain #20 tabs 08/26/24 methylprednisolone 4 mg tablets in See Rx Instructions PO .COMPLEX 08/26/24 a dose pack (Medrol (Francisco J)) #21 ea quetiapine 100 mg tablet (Seroquel) 100 mg PO BEDTIME #30 tabs 08/26/24 Allergies Allergy/AdvReac Type Severity Reaction Status Date / Time buprenorphine [From Butrans] Allergy Uncontrollable Verified 08/26/24 16:35 movements carbamazepine [From Tegretol] Allergy Uncontrollable Verified 08/26/24 16:35 movements gabapentin Allergy Uncontrollable Verified 08/26/24 16:35 movements lamotrigine [From Lamictal] Allergy Uncontrollable Verified 08/26/24 16:35 movements celecoxib [From Celebrex] AdvReac Intermediate muscle Verified 08/26/24 16:35 cramps Review of Systems Const: Denies: fever(s), chills, body aches, fatigue or malaise Card: Denies: chest pain Resp: Denies: dyspnea GI: Denies: abdominal pain : Denies: flank pain, dysuria or hematuria Musc: Reports: back pain; Denies: neck pain, extremity pain, extremity swelling, joint pain or joint swelling Skin/Breast: Denies: rash Neuro: Denies: headache(s), numbness in extremities, weakness in extremities, sensory changes or difficulty walking PFS ED PFSH: Medical History Nipple discharge in female Breast abscess of female Contusion of foot, right Crushing injury of foot, right Plantar fasciitis of left foot Chronic neck pain Elevated MCV Major depressive disorder, 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 anxious distress Mixed stress and urge urinary incontinence Abnormal blood sugar Abdominal pain Acute bacterial sinusitis Breast cancer screening by mammogram Headache Osteoarthritis, hip, bilateral Psychiatric care Cough Lower respiratory infection Dyspareunia Wheezing Shortness of breath Bilateral hip pain Chronic diarrhea Chronic post-traumatic stress disorder Myalgia due to statin Poverty status Memory loss Balance problem Sleep apnea Hand and foot pain Mixed hyperlipidemia Obstructive sleep apnea Myalgia Myalgia Arthralgia of both hands Muscle spasm Fibromyalgia Muscle pain 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 Fatigue Hypomagnesemia Encounter for medication management Spinal cord stimulator status Osteoarthritis of spine Vertigo Left hand pain Sprain of left wrist Leg cramp Vitamin B 12 deficiency Elevated vitamin B12 level COPD (chronic obstructive pulmonary disease) Encounter for long-term opiate analgesic use Chronic neck pain with history of cervical spinal surgery Cervical post-laminectomy syndrome Weakness Cigarette nicotine dependence Generalized anxiety disorder Sleep apnea in adult Patient had initial sleep study done, but titration portion of test has not been done Hypertension, benign Memory change Hyperlipidemia, mixed GERD (gastroesophageal reflux disease) Anemia Moderate persistent asthma Vitamin D deficiency Bilateral hearing loss Menopause Intervertebral disc degeneration Surgical History Overactive bladder 2017 InterStim Therapy H/O oral surgery Colon polyps Patient will require surveillance colonoscopy in 5-years History of cholecystectomy History of carpal tunnel release (07/01/19) Left, Dr. Franco History of carpal tunnel release (03/22/19) Right, Dr. Franco History of fusion of cervical spine (03/22/19) Dr. Franco, C5-C6 Revision ACDFF, removal of prior C4-C6 plate/screw construct. History of fusion of cervical spine (~2011) [facility], C4-C5, C5-C6 Family History Mother , in her 60's Hypercholesteremia Hypertension Diabetes Heart disease Stroke Family/Other Colon polyps Father , in his 50's Cancer Other Rheumatoid arthritis Denies family history of Lupus Social History Smoking and tobacco/nicotine status: current every day tobacco/nicotine user cigarettes Packs smoked per day: 1 Years cigarettes smoked: 40 Alcohol intake: never Substance/Drug Use: never Marital status: Current occupational status: disabled Physical Exam Const: COMMON NORMALS: no acute distress, average body habitus, no limitations, healthy appearing, alert and well nourished GENERAL APPEARANCE: cooperative Neck/C-Spine: COMMON NORMALS: full ROM and no meningeal signs Resp: COMMON NORMALS: normal respiratory effort and clear to auscultation bilaterally AUSCULTATION: clear to auscultation bilaterally Cardio: COMMON NORMALS: regular rate and regular rhythm RATE: regular rate RHYTHM: regular rhythm GI: COMMON NORMALS: Normal to inspection, nondistended, normoactive bowel s ounds present, Soft to palpation, non-tender and no masses PALPATION: Yes Soft to palpation : COMMON NORMALS: Yes no CVA tenderness BLADDER/KIDNEY EXAM: Yes no CVA tenderness Back/Pelvis: COMMON NORMALS: no CVA tenderness, thoracic and lumbar spine normal to inspection, no thoracic nor lumbar tenderness, thoraco-lumbar ROM normal and straight leg raise negative bilaterally LUMBAR SPINE/LOWER BACK: Yes straight leg raise negative bilaterally PELVIS: Yes buttocks normal and No sciatic notch tenderness SACROILIAC JOINTS: Yes SI joint(s) abnormal SI joint details: tender to palpation (left) SACRUM: no tenderness COCCYX: no tenderness Extremity: COMMON NORMALS: capillary refill normal, no clubbing, cyanosis or edema, no calf tenderness and no pedal edema GENERAL: Yes normal exam except as noted Neuro: COMMON NORMALS: moves all extremities, no focal motor deficits and no sensory deficits noted SENSORIUM/ORIENTATION: Yes alert MENINGEAL SIGNS: Yes no meningeal signs GAIT: Yes Normal gait present MOTOR EXAM: 5/5 motor strength present throughout Course Vital Signs: Vital signs: Vital Signs Temperature 98.1 F 08/26/24 16:29 Pulse Rate 93 08/26/24 17:08 Respiratory Rate 16 08/26/24 17:08 Blood Pressure 133/83 08/26/24 17:08 Pulse Oximetry 98 08/26/24 17:08 Oxygen Delivery Me thod Room Air 08/26/24 16:54 MDM - Back Pain/Injury Medical Decision Making Patient here for acute on chronic left-sided low back pain. She states she has hydrocodone that she takes at home for pain. Will start her on an anti- inflammatory and steroids. Recommend she follow-up with her primary care provider. Medical Records I reviewed the patient's medical records. No radiology studies performed this visit Discharge Plan Discharge Patient Disposition: Home Clinical Impression: Lower back pain Qualifiers: Chronicity: acute Back pain laterality: left Sciatica presence: without sciatica Qualified Code(s): M54.50 - Low back pain, unspecified Condition: Stable Prescriptions: New methylprednisolone [Medrol (Francisco J)] 4 mg tablets,dose pack See Rx Instructions .ROUTE .COMPLEX Qty: 21 0RF Rx Instructions: orally per package directions ibuprofen 600 mg tablet 600 mg PO Q8H PRN (Reason: pain) Qty: 20 0RF No Action (DME) nebulizers Misc See Rx Instructions .Route Qty: 1 0RF Rx Instructions: As directed (DME) Georgina Braun collar See Rx Instructions .Route .MEDSUPPLY Qty: 1 0RF Rx Instructions: As directed quetiapine [Seroquel] 100 mg tablet 100 mg PO BEDTIME Qty: 30 3RF Rx Instructions: Take one tablet at bedtime hydroxyzine HCl 10 mg tablet 10 mg PO TID PRN (Reason: anxiety) Qty: 90 3RF Rx Instructions: Take one tablet three times per day as needed for anxiety (DME) FreeStyle Paul 14 Day [place] Misc See Rx Instructions .Route Qty: 1 0RF Rx Instructions: As directed Breztri Aerosphere 160-9-4.8 mcg/actuation HFA aerosol inhaler 2 inh inhalation BID ciprofloxacin HCl [Cipro] 500 mg tablet 500 mg PO BID Qty: 20 0RF (DME) Bone Growth Stimulator E0748 See Rx Instructions .Route .MEDSUPPLY Qty: 1 0RF Rx Instructions: As directed (DME) FreeStyle Paul 14 Day Sensor Kit See Rx Instructions .ROUTE .COMPLEX Qty: 1 2RF Dose Instruction: USE DIRECTED Rx Instructions: USE DIRECTED (DME) FreeStyle Paul 14 Day Sensor Kit See Rx Instructions .ROUTE .COMPLEX Qty: 1 0RF Dose Instruction: USE DIRECTED Rx Instructions: USE DIRECTED montelukast 10 mg tablet See Rx Instructions .ROUTE .COMPLEX Qty: 30 2RF Dose Instruction: TAKE 1 TABLET BY MOUTH ONCE EVERY NIGHT AT BEDTIME Rx Instructions: TAKE 1 TABLET BY MOUTH ONCE EVERY NIGHT AT BEDTIME cholecalciferol (vitamin D3) 1,250 mcg (50,000 unit) capsule 50,000 unit PO .weekly Qty: 12 1RF omeprazole 40 mg capsule,delayed release(DR/EC) See Rx Instructions .ROUTE .COMPLEX Qty: 30 2RF Dose Instruction: TAKE 1 CAPSULE BY MOUTH EVERY DAY FOR 4 WEEKS Rx Instructions: TAKE 1 CAPSULE BY MOUTH EVERY DAY FOR 4 WEEKS Metamucil 3.4 gram/5.4 gram powder 2 tsp PO DAILY PRN (Reason: Constipation) Discharge Orders: Discharge ED (Routine); Ordered 08/26/24 Ordered By: Bianca Arechiga Referrals: ASHLEY Berg, RAZA [Primary Care Provider] - Activity Restrictions/Additional Instructions: As we discussed, I would recommend you follow-up with your primary care provider for further evaluation and treatment of your lower back pain. Coding Level of Care Code ED Water Purifier Operator for Mookie Torres
[2024-08-26 16:54] VITALS: BP 131/86; PULSE 93; RESP 16; O2SAT 98
[2024-08-26 17:08] VITALS: BP 133/83; PULSE 93; RESP 16; O2SAT 98
== END 2024-08-26 17:09 | disposition home or self-care (01) ==
PROVIDERS: Emergency Provider Physician Assistant; PCP Nurse Practitioner Family
DX: M54.50 Low back pain, unspecified (principal); F17.210 Nicotine dependence, cigarettes, uncomplicated; E78.2 Mixed hyperlipidemia; J44.9 Chronic obstructive pulmonary disease, unspecified
CPT/HCPCS: 99283

== ENCOUNTER → 2025-03-28 15:06 | Outpatient (BNVA) | payer MEDICAID, SELFPAY | PROVIDERS: PCP Nurse Practitioner Family; Visit Provider Nurse Practitioner Family | DX: I10 Essential (primary) hypertension (principal); E78.2 Mixed hyperlipidemia; E53.8 Deficiency of other specified B group vitamins; K21.9 Gastro-esophageal reflux disease without esophagitis; M10.9 Gout, unspecified; E83.42 Hypomagnesemia | CPT/HCPCS: 73523; 80053; 80061; 81003; 82306; 82607; 82728; 82746; 83036; 83550; 83735; 83880; 84443; 84550; 85025 ==

== ENCOUNTER → 2025-04-11 15:43 | Outpatient (BNVA) | payer MEDICAID, SELFPAY | PROVIDERS: PCP Nurse Practitioner Family; Visit Provider Nurse Practitioner Family | DX: M19.072 Primary osteoarthritis, left ankle and foot (principal) | CPT/HCPCS: 73630 ==

== ENCOUNTER → 2025-05-30 07:55 | Outpatient (BNVA) | payer MEDICAID, SELFPAY | PROVIDERS: PCP Nurse Practitioner Family; Visit Provider Orthopaedic Surgery | DX: M25.551 Pain in right hip (principal); M25.552 Pain in left hip; M62.81 Muscle weakness (generalized) | CPT/HCPCS: 73523; 99204 ==